=== PATIENT | female | born 1935 | race Caucasian/White ===

== ENCOUNTER 2023-05-14 16:38 | Inpatient (IN) ==
[2023-05-14] MEDS ORDERED: MORPHINE SULFATE INJ 4 MG ONE ×2 (17:15→19:57)
[2023-05-14] MEDS ORDERED: ZOFRAN INJ 4 MG VIAL ONE (17:15)
--- NOTE | 2023-05-14 17:21 | DR.EXTPAIN ---
HPI Time seen Time Seen by Provider: 05/14/23 17:20 PCP Primary Care Physician: Mauricio Complaint/Symptoms Chief Complaint:: Patient states that [facility] and [facility]. She states that she landed on her right shoulder and left knee. She states that her knee does not hurt, but her shoulder is very painful and she is unable to move it. COVID-19 Coronavirus risk:travel/contact w/high risk person: No Has patient experienced Coronavirus symptoms: No Nurses notes reviewed Nurses Notes Review: Yes Source History Provided: Patient Mode of arrival Mode of Arrival: Wheelchair Timing Onset of Chief Complaint: 05/14/23 PMH PMH Past Medical History: Yes Past Medical History: Diabetes, Dyslipidemia and Hypertension Past Medical History Comment: Breast cancer left side Past Surgical History: Yes Surgical History: Appendectomy, Hysterectomy, Mastectomy and Ortho Surgery Past Surgical History Comment: Neck Family History History of Family Medical Conditions: Yes Family Medical History: Diabetes Mellitus, AR and Hypertension Social History Does patient currently use any type of tobacco product: No Have you used tobacco products in the last 12 months: No Type of Tobacco Use: None Does any household member use tobacco: No Alcohol Use: None Do you use any recreational Drugs:: No Lives With: Family Lives Where: Home Travel Risk Coronavirus risk:travel/contact w/high risk person: No Has patient experienced Coronavirus symptoms: No Infectious screening In the last 2 months have you had wt loss of >10#?: NO Have you had fever, night sweats or hemotysis?: No Have you traveled outside the country in the last 6 months?: No Isolation: Standard PE Vital Signs Vitals: Vital Signs Temperature 98.4 F Pulse Rate 77 Pulse Rate 77 Pulse Rate 74 Pulse Rate 75 Pulse Rate 74 Pulse Rate 74 Pulse Rate 74 Pulse Rate 73 Pulse Rate 75 Pulse Rate 72 Pulse Rate 73 Pulse Rate 74 Pulse Rate 76 Pulse Rate 72 Pulse Rate 72 Pulse Rate 73 Pulse Rate 72 Pulse Rate 72 Pulse Rate 72 Pulse Rate 67 Pulse Rate 65 Pulse Rate 66 Pulse Rate 66 Pulse Rate 65 Pulse Rate 67 Pulse Rate 69 Pulse Rate 77 Pulse Rate 79 Pulse Rate 81 Pulse Rate 81 Pulse Rate 90 Respiratory Rate 20 Respiratory Rate 20 Respiratory Rate 18 Respiratory Rate 20 Respiratory Rate 20 Respiratory Rate 20 Respiratory Rate 18 Respiratory Rate 35 Respiratory Rate 22 Respiratory Rate 32 Respiratory Rate 20 Respiratory Rate 18 Blood Pressure 177/74 Blood Pressure 182/78 Blood Pressure 177/73 Blood Pressure 177/73 Blood Pressure 209/79 Blood Pressure 190/79 Blood Pressure 208/87 Blood Pressure 208/87 Blood Pressure 221/85 Blood Pressure 211/86 Blood Pressure 227/91 Blood Pressure 212/85 Blood Pressure 228/88 Blood Pressure 228/88 Blood Pressure 211/84 Blood Pressure 211/84 Blood Pressure 213/82 Blood Pressure 213/82 Blood Pressure 183/74 Blood Pressure 226/91 Blood Pressure 229/95 Blood Pressure 243/109 Blood Pressure 213/86 O2 Sat by Pulse Oximetry 94 O2 Sat by Pulse Oximetry 93 O2 Sat by Pulse Oximetry 95 O2 Sat by Pulse Oximetry 94 O2 Sat by Pulse Oximetry 95 O2 Sat by Pulse Oximetry 95 O2 Sat by Pulse Oximetry 94 O2 Sat by Pulse Oximetry 93 O2 Sat by Pulse Oximetry 94 O2 Sat by Pulse Oximetry 95 O2 Sat by Pulse Oximetry 95 O2 Sat by Pulse Oximetry 96 O2 Sat by Pulse Oximetry 95 O2 Sat by Pulse Oximetry 94 O2 Sat by Pulse Oximetry 96 O2 Sat by Pulse Oximetry 96 O2 Sat by Pulse Oximetry 96 O2 Sat by Pulse Oximetry 95 O2 Sat by Pulse Oximetry 95 O2 Sat by Pulse Oximetry 94 O2 Sat by Pulse Oximetry 93 O2 Sat by Pulse Oximetry 95 O2 Sat by Pulse Oximetry 93 O2 Sat by Pulse Oximetry 94 O2 Sat by Pulse Oximetry 94 O2 Sat by Pulse Oximetry 95 O2 Sat by Pulse Oximetry 96 O2 Sat by Pulse Oximetry 96 O2 Sat by Pulse Oximetry 96 [facility] Labs Reviewed 05/14/23 17:50 05/14/23 17:50 Laboratory: WBC 6.1 X10^3/uL (3.6-10.0) 05/14/23 17:50 RBC 3.87 X10^6/uL (3.5-5.4) 05/14/23 17:50 Hgb 11.4 g/dL (12.0-16.0) L 05/14/23 17:50 Hct 33.8 % (36.0-47.0) L 05/14/23 17:50 MCV 87.1 fL (80.0-100.0) 05/14/23 17:50 MCH 29.3 pg (27.0-34.0) 05/14/23 17:50 MCHC 33.6 g/dL (33.0-35.0) 05/14/23 17:50 RDW 14.5 % (11.6-16.5) 05/14/23 17:50 Plt Count 249 X10^3/uL (150.0-450.0) 05/14/23 17:50 MPV 7.9 fL (7.4-11.0) 05/14/23 17:50 Neut % (Auto) 45.0 % (42.0-75.0) 05/14/23 17:50 Lymph % (Auto) 37.8 % (21.0-51.0) 05/14/23 17:50 [facility] % (Auto) 13.1 % (0.0-13.0) H 05/14/23 17:50 Eos % (Auto) 1.9 % (0.9-2.9) 05/14/23 17:50 Baso % (Auto) 2.2 % (0.2-1.0) H 05/14/23 17:50 Neut # (Auto) 2.7 x10^3/uL (2.2-4.8) 05/14/23 17:50 Lymph # (Auto) 2.3 X10^3/uL (1.3-2.9) 05/14/23 17:50 [facility] # (Auto) 0.8 x10^3/uL (0.3-0.8) 05/14/23 17:50 Eos # (Auto) 0.1 x10^3/uL (0.0-0.2) 05/14/23 17:50 Baso # (Auto) 0.1 X10^3/uL (0.0-0.1) 05/14/23 17:50 Absolute Nucleated RBC 0.1 /100WBC 05/14/23 17:50 Sodium 138 mmol/L (136-145) 05/14/23 17:50 Corrected Sodium 139 mmol/L (136-145) 05/14/23 17:50 Potassium 4.2 mmol/L (3.5-5.1) 05/14/23 17:50 Chloride 104 mmol/L (98-107) 05/14/23 17:50 Carbon Dioxide 24.9 mmol/L (21-32) 05/14/23 17:50 BUN 27 mg/dL (7-18) H 05/14/23 17:50 Creatinine 1.58 mg/dL (0.55-1.02) H 05/14/23 17:50 Est GFR (MDRD) Af Amer 40 (>60) L 05/14/23 17:50 Est GFR (MDRD) Non-Af 33 (>60) L 05/14/23 17:50 Glucose 145 mg/dL (65-99) H 05/14/23 17:50 Calcium 8.9 mg/dL (8.5-10.1) 05/14/23 17:50 Corrected Calcium TNP 05/14/23 17:50 Total Bilirubin 0.30 mg/dL (0.2-1.0) 05/14/23 17:50 AST 21 Units/L (15-37) 05/14/23 17:50 ALT 21 Units/L (12-78) 05/14/23 17:50 Alkaline Phosphatase 79 Units/L (46-116) 05/14/23 17:50 Total Protein 7.0 g/dL (6.4-8.2) 05/14/23 17:50 Albumin 3.9 g/dL (3.4-5.0) 05/14/23 17:50 Globulin 3.1 g/dL (2.5-4.5) 05/14/23 17:50 Albumin/Globulin Ratio 1.3 Ratio (1.1-2.1) 05/14/23 17:50 Opioid Opioid Risk Tool Age (Cj box if 16-45): No History of Preadolescent Sexual Abuse: No Total: 0 Total Score Risk Category: Low Risk Copyright: Lopez MORALES predicting aberrant behaviors Discharge Plan Diagnosis Discharge Problem: Hypertension Qualifiers: Hypertension type: primary hypertension Qualified Code(s): I10 - Essential (primary) hypertension Closed right humeral fracture Qualifiers: Encounter type: initial encounter Humerus Location: proximal Fracture morphology: other fracture Fracture alignment: nondisplaced Qualified Code(s): S42.294A - Other nondisplaced fracture of upper end of right humerus, initial encounter for closed fracture Fall Qualifiers: Encounter type: initial encounter Qualified Code(s): W19.XXXA - Unspecified fall, initial encounter Discharge Plan Patient Disposition: ADMITTED INPATIENT Condition: Stable Orders to Discharge Patient Discharge Orders: Transfer (Routine); Ordered 05/14/23 Ordered By: JUAN ALBERTO PRINCE
[2023-05-14] MEDS: MORPHINE SULFATE INJ 4 MG IVP ONE ×2 (17:50→20:03)
[2023-05-14] MEDS: ZOFRAN INJ 4 MG VIAL IVP ONE (17:51)
[2023-05-14 18:02] LABS: BASOPHILS # (AUTO) 0.1 X10^3/uL (0.0-0.1); BASOPHILS % (AUTO) 2.2 % (0.2-1.0); EOSINOPHILS # (AUTO) 0.1 x10^3/uL (0.0-0.2); EOSINOPHILS % (AUTO) 1.9 % (0.9-2.9); HEMATOCRIT 33.8 % (36.0-47.0); HEMOGLOBIN 11.4 g/dL (12.0-16.0); LYMPHOCYTES # (AUTO) 2.3 X10^3/uL (1.3-2.9); LYMPHOCYTES % (AUTO) 37.8 % (21.0-51.0); MEAN CORPUSCULAR HEMOGLOBIN 29.3 pg (27.0-34.0); MEAN CORPUSCULAR HGB CONC 33.6 g/dL (33.0-35.0); MEAN CORPUSCULAR VOLUME 87.1 fL (80.0-100.0); MEAN PLATELET VOLUME 7.9 fL (7.4-11.0); MONOCYTES # (AUTO) 0.8 x10^3/uL (0.3-0.8); MONOCYTES % (AUTO) 13.1 % (0.0-13.0); NEUTROPHILS # (AUTO) 2.7 x10^3/uL (2.2-4.8); PLATELET COUNT 249 X10^3/uL (150.0-450.0); RED BLOOD COUNT 3.87 X10^6/uL (3.5-5.4); RED CELL DISTRIBUTION WIDTH 14.5 % (11.6-16.5); WHITE BLOOD COUNT 6.1 X10^3/uL (3.6-10.0)
--- NOTE | 2023-05-14 18:09 | RAD ---
EXAM:SHOULDER, RIGHTHISTORY:fall;COMPARISON:None. .br.br.br obtained.FINDINGS:There is comminuted spiral fracture of the right proximal humeral shaft which is angulated medially at the fracture site. No dislocation of the right humeral head is seen. There is also fracture through the mid body of the lateral aspect of the right scapula. The appearance of the clavicle and AC joint are unremarkable. The glenohumeral articulation is intact. In addition, the visualized portions of the chest appear unremarkable.Evidence for anterior cervical interbody fusion of 3 levels of the lower cervical spine is seen.IMPRESSION:Comminuted spiral fracture of the proximal right humeral shaft seen just beyond the proximal metaphysis with angulation medially at the fracture site.Fracture of the lateral aspect of the mid body of the scapula.THIS IS AN ELECTRONICALLY VERIFIED FINAL REPORT05/14/2023 6:06 PM - Electronically signed by Penelope Long MD
[2023-05-14 18:12] LABS: ALANINE AMINOTRANSFERASE 21 Units/L (12-78); ALBUMIN 3.9 g/dL (3.4-5.0); ALKALINE PHOSPHATASE 79 Units/L (46-116); ASPARTATE AMINO TRANSFERASE 21 Units/L (15-37); BLOOD UREA NITROGEN 27 mg/dL (7-18); CALCIUM 8.9 mg/dL (8.5-10.1); CARBON DIOXIDE 24.9 mmol/L (21-32); CHLORIDE 104 mmol/L (98-107); COR NA(FOR HYPERGLY) 139 mmol/L (136-145); CREATININE 1.58 mg/dL (0.55-1.02); GLUCOSE 145 mg/dL (65-99); POTASSIUM 4.2 mmol/L (3.5-5.1); SODIUM 138 mmol/L (136-145); eGFR NON BLACK RACES 33 (>60)
--- NOTE | 2023-05-14 18:33 | RAD ---
EXAM:KNEE COMPLETE, LEFTHISTORY:TRAUMA, PAIN;COMPARISON:None.TECHNIQUE:Frontal, lateral and oblique views of the left knee were obtained.FINDINGS:There are no acute fractures or dislocations. There are no lytic or blastic lesions identified. There are severe degenerative joint disease of the knee joint with loss of the medial compartment joint space and [id number] contact. Mild sclerosis of the intra-articular surface of the medial femoral condyle and medial tibial plateau is seen. Significant osteophytosis is noted of the medial femoral condyle, medial tibial plateau and lateral femoral condyle. Significant osteophyte formation of the patellofemoral joint is also seen as well as enthesopathy of the anterior superior patella. There is a small suprapatellar effusion. 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
--- NOTE | 2023-05-14 18:35 | RAD ---
EXAM:ELBOW, RIGHTHISTORY:fall;COMPARISON:None. .br.br.br obtainedFINDINGS:There are no acute fractures or dislocations identified. The radial head specifically appears intact. There are no lytic or blastic lesions identified. There are osteophytes arising from the proximal shaft of the ulna and distal metaphysis of the ventral humerus. Mild enthesopathy is also seen arising from the medial and lateral epicondyles there is no evidence for elevated fat pads to suggest joint hemarthrosis.IMPRESSION:No acute fractures or dislocations.Minimal degenerative changes as described.THIS IS AN ELECTRONICALLY VERIFIED FINAL REPORT05/14/2023 6:31 PM - Electronically signed by Penelope Long MD
[2023-05-14] MEDS ORDERED: CATAPRES TAB 0.2 MG ONE (20:40)
[2023-05-14] MEDS: CATAPRES TAB 0.2 MG PO ONE (20:41)
[2023-05-14 23:37] VITALS: BMI 29.5
[2023-05-15] MEDS: MORPHINE SULFATE INJ 4 MG IVP PRN (00:20)
[2023-05-15] MEDS: NovoLIN R (or HumuLIN R) SUBCUT PRN (05:35)
[2023-05-15 07:00] LABS: BASOPHILS % (AUTO) 0.6 % (0.2-1.0); EOSINOPHILS # (AUTO) 0.1 x10^3/uL (0.0-0.2); EOSINOPHILS % (AUTO) 0.6 % (0.9-2.9); HEMATOCRIT 28.4 % (36.0-47.0); HEMOGLOBIN 9.6 g/dL (12.0-16.0); LYMPHOCYTES # (AUTO) 1.1 X10^3/uL (1.3-2.9); LYMPHOCYTES % (AUTO) 13.1 % (21.0-51.0); MEAN CORPUSCULAR HEMOGLOBIN 29.5 pg (27.0-34.0); MEAN CORPUSCULAR HGB CONC 33.8 g/dL (33.0-35.0); MEAN CORPUSCULAR VOLUME 87.4 fL (80.0-100.0); MEAN PLATELET VOLUME 7.9 fL (7.4-11.0); MONOCYTES % (AUTO) 11.6 % (0.0-13.0); NEUTROPHILS # (AUTO) 6.5 x10^3/uL (2.2-4.8); NEUTROPHILS % (AUTO) 74.1 % (42.0-75.0); PLATELET COUNT 205 X10^3/uL (150.0-450.0); RED BLOOD COUNT 3.24 X10^6/uL (3.5-5.4); RED CELL DISTRIBUTION WIDTH 14.7 % (11.6-16.5); WHITE BLOOD COUNT 8.7 X10^3/uL (3.6-10.0)
[2023-05-15 07:25] LABS: ALBUMIN 3.2 g/dL (3.4-5.0); CALCIUM 8.2 mg/dL (8.5-10.1); CARBON DIOXIDE 24.7 mmol/L (21-32); COR CA(FOR HYPOALB) 8.8 mg/dL (8.5-10.1); CREATININE 1.65 mg/dL (0.55-1.02); POTASSIUM 4.6 mmol/L (3.5-5.1); TOTAL PROTEIN 6.2 g/dL (6.4-8.2)
[2023-05-15] MEDS ORDERED: GLUCOPHAGE ONE ×2 (08:12→20:06)
[2023-05-15] MEDS: APRESOLINE TAB 25 MG PO SCH (08:43)
[2023-05-15] MEDS: DIABETA PO SCH (08:43)
[2023-05-15] MEDS: ALDACTONE TAB 25 MG PO SCH (08:43)
[2023-05-15] MEDS: LYRICA CAP 75 mg PO SCH (08:44)
[2023-05-15] MEDS: GLUCOPHAGE PO SCH (08:44)
[2023-05-15] MEDS: MACROBID CAP 100 MG EXT REL PO SCH (08:44)
[2023-05-15] MEDS: PriLOSEC PO SCH (08:45)
[2023-05-15] MEDS: TRICOR TAB 145 MG PO SCH (08:45)
[2023-05-15] MEDS: TOPROL XL PO SCH (08:45)
[2023-05-15] MEDS: SINGULAIR TAB 10 MG PO SCH (08:45)
[2023-05-15] MEDS: LOVAZA PO SCH (08:46)
[2023-05-15] MEDS: PREDNISONE TAB 5 MG PO SCH (09:00)
[2023-05-15] MEDS ORDERED: FEMARA PO SCH (09:00)
[2023-05-15] MEDS: PATIENT'S HOME MEDICATION PO SCH (12:01)
[2023-05-15] MEDS: ZOFRAN INJ 4 MG VIAL IVP PRN (15:23)
[2023-05-15] MEDS: PERCOCET TAB 5/325 MG PO PRN (16:00)
--- NOTE | 2023-05-15 19:12 | DR.H&P ---
H&P - History & Physical for Day of: H&P Date: 05/14/23 - Chief Complaint Chief Complaint: RIGHT SHOULDER PAIN, LEFT KNEE PAIN, RECENT FALL - History of Present Illness History of Present Illness: IS A 87 YEAR OLD PATIENT OF DR.SINC CHAMPION. SHE PRESENTED TO THE ER WITH COMPLAINTS OF RIGHT SHOULDER AND LEFT KNEE PAIN FOLLOWING A FALL. PATIENT REPORTS THAT SHE WAS VISITING AT THE [employer] AND FELL. SHE LANDED ON THE RIGHT SHOULDER. SHE REPORTS THAT SHE IS UNABLE TO MOVE THE RIGHT SHOULDER. HER MEDICAL HX INCLUDES: DIABETES MELLITUS, DYSLIPIDEMIA, HTN, LEFT BREAST CANCER, APPENDECTOMY, HYSTERECTOMY, MASTECTOMY, AND NECK SURGERY. ON ARRIVAL, HER VITALS WERE: 98.4-90-18-96%-213/86. LABS WERE OBTAINED. WBC 6.1, RBC 3.87, HGB 11.4, HCT 33.8, PLT COUNT 249, SODIUM 138, POTASSIUM 4.2, CHLORIDE 104, BUN 27, CREATININE 1.58, GLUCOSE 145, CALCIUM 8.9, TOTAL BILI 0.30, AST 21, ALT 21, ALK PHOS 79, TOTAL PROTEIN 7.0, ALBUMIN 3.9. RIGHT ELBOW XRAY WAS OBTAINED AND REVEALED: There are no acute fractures or dislocations identified. The radial head specifically appears intact. There are no lytic or blastic lesions identified. There are osteophytes arising from the proximal shaft of the ulna and distal metaphysis of the ventral humerus. Mild enthesopathy is also seen arising from the medial and lateral epicondyles there is no evidence for elevated fat pads to suggest joint hemarthrosis. RIGHT SHOULDER XRAY WAS OBTAINED AND REVEALED: There is comminuted spiral fracture of the right proximal humeral shaft which is angulated medially at the fracture site. No dislocation of the right humeral head is seen. There is also fracture through the mid body of the lateral aspect of the right scapula. The appearance of the clavicle and AC joint are unremarkable. The glenohumeral articulation is intact. In addition, the visualized portions of the chest appear unremarkable. Evidence for anterior cervical interbody fusion of 3 levels of the lower cervical spine is seen. LEFT KNEE XRAY WAS OBTAINED AND REVEALED: No evidence for acute fractures or Dislocations. Severe degenerative joint disease of the knee joint. IN THE ER, SHE WAS GIVEN MORPHINE SULFATE 4MG IV X 2, ZOFRAN 4MG IV X 1, CATAPRES 0.2MG PO X 1. SHE WAS ADMITTED TO THE HOSPITAL OBSERVATION STATUS FOR TREATMENT OF INTRACTABLE PAIN DUE TO RIGHT HUMERAL FX, RIGHT SCAPULA FX, RECENT FALL, HTN. SHE WAS STARTED ON OTBS ACHS, HUMULIN R SLIDING SCALE, MORPHINE SULFATE 4MG IV Q4H PRN, PERCOCET 5/325MG Q6H PRN. WE WILL RESUME HER HOME MEDICATIONS OF VITAMIN B12, COLACE, VITAMIN D, TRICOR, GLYBURIDE, HYDRALAZINE, GLUCOPHAGE, TOPROL XL, SINGULAIR, MACROBID, LOVAZA, PRILOSEC, PREDNISONE, LYRICA, CRESTOR, ALDACTONE. WE WILL CONSULT LILO VINCENT. OTHERWISE, WE WILL FOLLOW-UP WITH AM LABS AND CONTINUE TO MONITOR. TIME SPENT ON CLINICAL ASSESSMENT, REVIEWING LABS AND IMAGING, DECISION MAKING, AND DOCUMENTATION GREATER THAN 75 MINUTES. - Past Medical History Past Medical History: Hypertension, Dyslipidemia, Diabetes - Past Surgical History Surgical History: Appendectomy, Hysterectomy, Mastectomy, Ortho Surgery - Family History Family Medical History: Diabetes Mellitus, Cancer, Hypertension - Social History Does patient currently use any type of tobacco product: No Have you used tobacco products in the last 12 months: No Type of Tobacco Use: None Does any household member use tobacco: No Alcohol Use: None Drug Use: None - Review of Systems Constitutional: Weakness Eyes: No Symptoms Reported ENT: No Symptoms Reported Respiratory: No Symptoms Reported Cardiovascular: No Symptoms Reported Gastrointestinal: No Symptoms Reported Genitourinary: No Symptoms Reported Musculoskeletal: Shoulder Pain (RIGHT ), Other (LEFT KNEE) Skin: No Symptoms Reported Neurological: Weakness - Physical Exam Vital Signs: Vital Signs Temperature 99.8 F Temperature 98.0 F Pulse Rate [Left Radial] 66 Pulse Rate [Left Radial] 66 Respiratory Rate 18 Respiratory Rate 18 Respiratory Rate 20 Respiratory Rate 20 Respiratory Rate 20 Respiratory Rate 20 Respiratory Rate 20 Respiratory Rate 18 Blood Pressure [Right Calf] 185/75 Blood Pressure [Right Calf] 157/65 O2 Sat by Pulse Oximetry 92 O2 Sat by Pulse Oximetry 93 Oriented: Normal Eyes: Normal Ear: Normal Nose: Normal Throat: Normal Respiratory: Clear Throughout Cardiovascular: Normal : Normal Auscultation: Bowel Sounds: Normal Palpation: Normal Tenderness: Normal Skin: Normal Musculoskeletal: Shoulder (RIGHT ), Knee (LEFT ) Psychiatric: Normal Mood Description: Calm Affect: Normal Speech Pattern: Clear - Assessment/Plan (1) Closed right humeral fracture Qualifiers: Encounter type: initial encounter Humerus Location: proximal Fracture morphology: other fracture Fracture alignment: nondisplaced Qualified Code(s): S42.294A - Other nondisplaced fracture of upper end of right humerus, initial encounter for closed fracture Status: Acute Plan: ORTHO CONSULT, SHOULDER SLING, OTBS ACHS, HUMULIN R SLIDING SCALE, MORPHINE SULFATE 4MG IV Q4H PRN, PERCOCET 5/325MG Q6H PRN. WE WILL RESUME HER HOME MEDICATIONS OF VITAMIN B12, COLACE, VITAMIN D, TRICOR, GLYBURIDE, HY DRALAZINE, GLUCOPHAGE, TOPROL XL, SINGULAIR, MACROBID, LOVAZA, PRILOSEC, PREDNISONE, LYRICA, CRESTOR, ALDACTONE (2) Right scapula fracture Qualifiers: Encounter type: initial encounter Scapula location: unspecified part of scapula Fracture type: closed Qualified Code(s): S42.101A - Fracture of unspecified part of scapula, right shoulder, initial encounter for closed fracture Status: Acute (3) Fall Qualifiers: Encounter type: initial encounter Qualified Code(s): W19.XXXA - Unspecified fall, initial encounter Status: Acute (4) Left knee pain Qualifiers: Chronicity: acute Qualified Code(s): M25.562 - Pain in left knee Status: Acute (5) Diabetes mellitus Qualifiers: Diabetes mellitus type: type 2 Diabetes mellitus ferry terminal supervisor insulin use: with ferry terminal supervisor use Diabetes mellitus complication status: with hyperglycemia Qualified Code(s): E11.65 - Type 2 diabetes mellitus with hyperglycemia; Z79.4 - ferry terminal supervisor (current) use of insulin Status: Chronic (6) GERD (gastroesophageal reflux disease) Qualifiers: Esophagitis presence: esophagitis presence not specified Qualified Code(s): K21.9 - Gastro-esophageal reflux disease without esophagitis Status: Chronic (7) Hyperlipidemia Qualifiers: Hyperlipidemia type: mixed hyperlipidemia Qualified Code(s): E78.2 - Mixed hyperlipidemia Status: Chronic (8) Hypertension Qualifiers: Hypertension type: primary hypertension Qualified Code(s): I10 - Essential (primary) hypertension Status: Chronic - Allergies Allergies/Adverse Reactions: Allergies Allergy/AdvReac Type Severity Reaction Status Date / Time No Known Allergies Allergy Verified 05/14/23 17:14 - Medications Home Medications: Home Medications Medication Instructions Recorded Confirmed cyanocobalamin (vitamin B-12) 1,000 mcg IM Q2W 05/14/23 05/14/23 1,000 mcg/mL injection solution ergocalciferol (vitamin D2) 1,250 1,250 mcg PO QWEEK 05/14/23 05/14/23 mcg (50,000 unit) capsule (Vitamin D2) fenofibrate nanocrystallized 145 145 mg PO QDAY 05/14/23 05/14/23 mg tablet glyburide 5 mg tablet 5 mg PO BID 05/14/23 05/14/23 hydralazine 25 mg tablet 25 mg PO BID 05/14/23 05/14/23 letrozole 2.5 mg tablet 2.5 mg PO QDAY 05/14/23 05/14/23 metformin 500 mg tablet 500 mg PO BID 05/14/23 05/14/23 metoprolol succinate 50 mg 50 mg PO QDAY 05/14/23 05/14/23 tablet,extended release 24 hr montelukast 10 mg tablet 10 mg PO QDAY 05/14/23 05/14/23 nitrofurantoin 100 mg PO DAILY 05/14/23 05/14/23 monohydrate/macrocrystals 100 mg capsule omega 2-kkj-rga-fish oil 1,200 mg 1 cap PO BID 05/14/23 05/14/23 (144 mg-216 mg) capsule (Fish Oil) omeprazole 20 mg capsule,delayed 20 mg PO QDAY 05/14/23 05/14/23 release prednisone 1 mg tablet 3 mg PO Q OTHER DAY 05/14/23 05/14/23 pregabalin 75 mg capsule 75 mg PO BID 05/14/23 05/14/23 rosuvastatin 20 mg tablet 20 mg PO QPM 05/14/23 05/14/23 spironolactone 50 mg tablet 50 mg PO BID 05/14/23 05/14/23
[2023-05-15] MEDS: PHENERGAN INJ 25 MG IM PRN (19:37)
[2023-05-15] MEDS ORDERED: SNACK - Diabetic Appropriate PO SCH (20:00)
[2023-05-15] MEDS: CRESTOR TAB 10 MG PO SCH (21:13)
[2023-05-15] MEDS: COLACE CAP 100 MG PO SCH (21:14)
[2023-05-15] MEDS: MILK OF MAGNESIA PO SCH (21:22)
[2023-05-15] MEDS: SNACK - Diabetic Appropriate PO SCH (21:22)
[2023-05-15] MEDS: NS 1,000 ML IV 1,000 ML IV SCH (21:53)
[2023-05-16 07:19] LABS: BASOPHILS # (AUTO) 0.1 X10^3/uL (0.0-0.1); BASOPHILS % (AUTO) 0.7 % (0.2-1.0); EOSINOPHILS # (AUTO) 0.2 x10^3/uL (0.0-0.2); HEMATOCRIT 27.1 % (36.0-47.0); HEMOGLOBIN 9.2 g/dL (12.0-16.0); LYMPHOCYTES % (AUTO) 23.5 % (21.0-51.0); MEAN CORPUSCULAR HEMOGLOBIN 29.9 pg (27.0-34.0); MEAN CORPUSCULAR HGB CONC 34.1 g/dL (33.0-35.0); MEAN CORPUSCULAR VOLUME 87.8 fL (80.0-100.0); MEAN PLATELET VOLUME 7.6 fL (7.4-11.0); MONOCYTES # (AUTO) 1.3 x10^3/uL (0.3-0.8); MONOCYTES % (AUTO) 15.3 % (0.0-13.0); NEUTROPHILS # (AUTO) 4.9 x10^3/uL (2.2-4.8); NEUTROPHILS % (AUTO) 58.5 % (42.0-75.0); PLATELET COUNT 179 X10^3/uL (150.0-450.0); RED BLOOD COUNT 3.08 X10^6/uL (3.5-5.4); RED CELL DISTRIBUTION WIDTH 14.8 % (11.6-16.5); WHITE BLOOD COUNT 8.4 X10^3/uL (3.6-10.0)
[2023-05-16 07:28] LABS: CALCIUM 8.2 mg/dL (8.5-10.1); CARBON DIOXIDE 23.2 mmol/L (21-32); CREATININE 1.64 mg/dL (0.55-1.02); POTASSIUM 4.2 mmol/L (3.5-5.1); TOTAL PROTEIN 6.1 g/dL (6.4-8.2)
[2023-05-16] MEDS ORDERED: GLUCOPHAGE ONE ×2 (08:30→20:48)
[2023-05-16] MEDS ORDERED: MILK OF MAGNESIA PO PRN (09:39)
[2023-05-16] MEDS: MILK OF MAGNESIA PO SCH (10:20)
--- NOTE | 2023-05-16 11:41 | CT ---
EXAM:CT ABDOMEN WITHOUT CONTRASTHISTORY:PT STATES SHE IS HAVING LEFT UPPER QUAD PAIN; ABD PAINCOMPARISON:None.TECHNIQUE:Axial CT images were obtained through the abdomen without contrast. Coronal reformatted images were included.All CT scans at this facility use dose modulation, iterative reconstruction, and/or weight based dosing when appropriate to reduce radiation dose to as low as reasonably achievable.FINDINGS:Please note that without the use of intravenous contrast, evaluation of organ parenchyma is limited.LOWER THORAX: Mild hypoventilatory changes of the lung basesLIVER: NormalGALLBLADDER: Mild gallbladder distentionSPLEEN: NormalPANCREAS: NormalKIDNEYS: Scattered renal cysts are suspected.ADRENAL GLANDS: NormalGI TRACT: Normal course and caliberLYMPH NODES: No enlarged nodesVESSELS: Diffuse athero sclerotic diseasePERITONEUM / RETROPERITONEUM: No free gasBONES: NormalIMPRESSION:Mild gallbladder distention. No inflammatory changes in the abdomen at this time. No findings left upper quadrant to correlate with the patient's history of left upper quadrant abdominal pain.Bibasilar lung atelectasis noted.THIS IS AN ELECTRONICALLY VERIFIED FINAL REPORT05/16/2023 11:38 AM - Electronically signed by John Null MD
[2023-05-16] MEDS: FEMARA PO SCH (15:42)
[2023-05-16 18:56] VITALS: RESP 20
--- NOTE | 2023-05-16 19:14 | DR.CONSULT ---
CONSULT Consultation for Day of: Date: 05/16/23 Chief Complaint Chief Complaint: Right arm/shoulder pain Allergies Allergies Allergy/AdvReac Type Severity Reaction Status Date / Time No Known Allergies Allergy Verified 05/14/23 17:14 History of Present Illness History of Present Illness: Katerina is an 87 y/o F at [facility] with the chief complaint of Right arm/shoulder pain. She was visiting at a [facility] yesterday when she fell and landed onto her Right side. She denies pain in the RUE prior to this fall. She was transported to [facility] ER where xrays demonstrated a humerus fracture. She was placed into observation to the hospital and admitted to pain control. Orthopedics was consulted for further recommendations. She currently reports pain is tolerable in a splint. She denies radiating pain or paresthesias. She denies head injury. Has a history of Right shoulder surgery many years ago, possibly for rotator cuff repair. Past Medical History Past Medical History: Diabetes, Dyslipidemia and Hypertension Past Surgical History Surgical History: Appendectomy, Hysterectomy, Mastectomy and Ortho Surgery (Right open shoulder surgery, ACDF) Family History Family Medical History: Diabetes Mellitus, Cancer and Hypertension Social History Does patient currently use any type of tobacco product: No Have you used tobacco products in the last 12 months: No Type of Tobacco Use: None Does any household member use tobacco: No Alcohol Use: None Drug Use: None Medications Home Medications: No Known Allergies Allergy (Verified 05/14/23 17:14) CONTINUE taking the following medications cyanocobalamin (vitamin B-12) 1,000 mcg/mL injection solution 1,000 mcg IM Q2W 05/14/23 [History] ergocalciferol (vitamin D2) 1,250 mcg (50,000 unit) capsule (Vitamin D2) 1,250 mcg PO QWEEK 05/14/23 [History] fenofibrate nanocrystallized 145 mg tablet 145 mg PO QDAY 05/14/23 [History] glyburide 5 mg tablet 5 mg PO BID 05/14/23 [History] hydralazine 25 mg tablet 25 mg PO BID 05/14/23 [History] letrozole 2.5 mg tablet 2.5 mg PO QDAY 05/14/23 [History] metformin 500 mg tablet 500 mg PO BID 05/14/23 [History] metoprolol succinate 50 mg tablet,extended release 24 hr 50 mg PO QDAY 05/14/23 [History] montelukast 10 mg tablet 10 mg PO QDAY 05/14/23 [History] nitrofurantoin monohydrate/macrocrystals 100 mg capsule 100 mg PO DAILY 05/14/23 [History] omega 4-izp-iiq-fish oil 1,200 mg (144 mg-216 mg) capsule (Fish Oil) 1 cap PO BID 05/14/23 [History] omeprazole 20 mg capsule,delayed release 20 mg PO QDAY 05/14/23 [History] prednisone 1 mg tablet 3 mg PO Q OTHER DAY 05/14/23 [History] pregabalin 75 mg capsule 75 mg PO BID 05/14/23 [History] rosuvastatin 20 mg tablet 20 mg PO QPM 05/14/23 [History] spironolactone 50 mg tablet 50 mg PO BID 05/14/23 [History] Review of Systems Constitutional: No Symptoms Reported Respiratory: No Symptoms Reported Cardiovascular: No Symptoms Reported Gastrointestinal: No Symptoms Reported Musculoskeletal: Arm Pain (RUE) Skin: Bruising (RUE) Neurological: No Symptoms Reported Physical Exam Vital Signs: Vital Signs Temperature 98.7 F Temperature 97.8 F Pulse Rate [Left Radial] 74 Pulse Rate [Left Radial] 70 Respiratory Rate 20 Respiratory Rate 18 Respiratory Rate 20 Respiratory Rate 20 Blood Pressure [Right Calf] 134/59 Blood Pressure [Right Calf] 172/72 O2 Sat by Pulse Oximetry 92 O2 Sat by Pulse Oximetry 92 Oriented: Normal Musculoskeletal: Shoulder (Right arm - extensive ecchymosis down the arm. Motor intact to IO/FPL/EPL/FDS. SILT in R/U/M dermatomes. Sensation intact in axillary nerve dermatome. Radial pulse 2+ with brisk capillary refill. Compartments are soft and compressible. Arm is in a sling.) Plan (1) Closed right humeral fracture: Status: Acute Qualifiers: Encounter type: initial encounter Fracture alignment: nondisplaced Fracture morphology: other fracture Humerus Location: proximal Qualified Code(s): S42.294A - Other nondisplaced fracture of upper end of right humerus, initial encounter for closed fracture Narrative Support Text: I reviewed her xrays which demonstrate a severely comminuted and angulated proximal humerus fracture that extends down into the shaft. She is currently comfortable in a sling. I brought a todd brace to fit to her arm but due to the discomfort associated with placing the splint in this setting, will hold off on this for now. She will be made NWB to the RUE. We discussed both conservative treatment options in regards to sling use and todd brace wear along with operative treatment options. The family does not want to pursue operative treatment options as this time. We discussed judicious use of ice and monitoring of the hematoma. I want her to follow up with me in one-two weeks in clinic for xrays for an alignment check. No surgical indications at this time. She can be discharged home from an Orthopedic standpoint. (2) Right scapula fracture: Status: Acute Qualifiers: Encounter type: initial encounter Fracture type: closed Scapula location: unspecified part of scapula Qualified Code(s): S42.101A - Fracture of unspecified part of scapula, right shoulder, initial encounter for closed fracture Narrative Support Text: Will also treated this non-operatively. She will be NWB in a sling for comfort. (3) Fall: Status: Acute Qualifiers: Encounter type: initial encounter Qualified Code(s): W19.XXXA - Unspecified fall, initial encounter (4) Left knee pain: Status: Acute Qualifiers: Chronicity: acute Qualified Code(s): M25.562 - Pain in left knee (5) Diabetes mellitus: Status: Chronic Qualifiers: Diabetes mellitus complication status: with hyperglycemia Diabetes mellitus emt intermediate insulin use: with emt intermediate use Diabetes mellitus type: type 2 Qualified Code(s): E11.65 - Type 2 diabetes mellitus with hyperglycemia; Z79.4 - detention (current) use of insulin (6) GERD (gastroesophageal reflux disease): Status: Chronic Qualifiers: Esophagitis presence: esophagitis presence not specified Qualified Code(s): K21.9 - Gastro-esophageal reflux disease without esophagitis (7) Hyperlipidemia: Status: Chronic Qualifiers: Hyperlipidemia type: mixed hyperlipidemia Qualified Code(s): E78.2 - Mixed hyperlipidemia (8) Hypertension: Status: Chronic Qualifiers: Hypertension type: primary hypertension Qualified Code(s): I10 - Essential (primary) hypertension
[2023-05-17 07:24] LABS: BASOPHILS # (AUTO) 0.1 X10^3/uL (0.0-0.1); BASOPHILS % (AUTO) 0.6 % (0.2-1.0); EOSINOPHILS # (AUTO) 0.2 x10^3/uL (0.0-0.2); EOSINOPHILS % (AUTO) 1.8 % (0.9-2.9); HEMATOCRIT 26.5 % (36.0-47.0); HEMOGLOBIN 8.9 g/dL (12.0-16.0); LYMPHOCYTES # (AUTO) 1.6 X10^3/uL (1.3-2.9); LYMPHOCYTES % (AUTO) 17.6 % (21.0-51.0); MEAN CORPUSCULAR HEMOGLOBIN 29.6 pg (27.0-34.0); MEAN CORPUSCULAR HGB CONC 33.6 g/dL (33.0-35.0); MEAN CORPUSCULAR VOLUME 88.2 fL (80.0-100.0); MONOCYTES # (AUTO) 1.4 x10^3/uL (0.3-0.8); MONOCYTES % (AUTO) 15.3 % (0.0-13.0); NEUTROPHILS # (AUTO) 5.8 x10^3/uL (2.2-4.8); NEUTROPHILS % (AUTO) 64.7 % (42.0-75.0); PLATELET COUNT 164 X10^3/uL (150.0-450.0); RED CELL DISTRIBUTION WIDTH 14.5 % (11.6-16.5)
[2023-05-17 07:47] LABS: ALBUMIN 2.8 g/dL (3.4-5.0); CALCIUM 8.1 mg/dL (8.5-10.1); CARBON DIOXIDE 25.5 mmol/L (21-32); COR CA(FOR HYPOALB) 9.1 mg/dL (8.5-10.1); CREATININE 1.51 mg/dL (0.55-1.02); POTASSIUM 4.3 mmol/L (3.5-5.1); TOTAL PROTEIN 6.2 g/dL (6.4-8.2)
[2023-05-17] MEDS ORDERED: GLUCOPHAGE ONE (08:03)
[2023-05-17 08:17] VITALS: BP 194/79; PULSE 76; TEMP 97.6; O2SAT 91
[2023-05-17] MEDS ORDERED: VITAMIN D (1.25MG) PO SCH (09:00)
[2023-05-17] MEDS: ALDACTONE TAB 25 MG PO SCH (09:12)
[2023-05-17] MEDS: TRICOR TAB 48 MG PO SCH (09:42)
[2023-05-17] MEDS: FLEXERIL TAB 10 MG PO ONE (10:00)
--- NOTE | 2023-05-18 13:15 | PCM.DCPLAN ---
DISCHARGE SUMMARY Admission Date Date of Admission: 05/14/23 Discharge Date Discharge Date: 05/17/23 Admission Diagnoses (1) Closed right humeral fracture: Status: Acute (2) Right scapula fracture: Status: Acute (3) Fall: Status: Acute (4) Left knee pain: Status: Acute (5) Diabetes mellitus: Status: Chronic (6) GERD (gastroesophageal reflux disease): Status: Chronic (7) Hyperlipidemia: Status: Chronic (8) Hypertension: Status: Chronic Discharge Diagnoses Discharge Diagnosis: Same as admission Discharge Medications Discharge Medications: Home Medication List cyanocobalamin (vitamin B-12) 1,000 mcg/mL injection solution 1,000 mcg IM Q2W 05/14/23 [History] ergocalciferol (vitamin D2) 1,250 mcg (50,000 unit) capsule (Vitamin D2) 1,250 mcg PO QWEEK 05/14/23 [History] fenofibrate nanocrystallized 145 mg tablet 145 mg PO QDAY 05/14/23 [History] glyburide 5 mg tablet 5 mg PO BID 05/14/23 [History] hydralazine 25 mg tablet 25 mg PO BID 05/14/23 [History] letrozole 2.5 mg tablet 2.5 mg PO QDAY 05/14/23 [History] metformin 500 mg tablet 500 mg PO BID 05/14/23 [History] metoprolol succinate 50 mg tablet,extended release 24 hr 50 mg PO QDAY 05/14/23 [History] montelukast 10 mg tablet 10 mg PO QDAY 05/14/23 [History] nitrofurantoin monohydrate/macrocrystals 100 mg capsule 100 mg PO DAILY 05/14/23 [History] omega 3-bge-ukg-fish oil 1,200 mg (144 mg-216 mg) capsule (Fish Oil) 1 cap PO BID 05/14/23 [History] omeprazole 20 mg capsule,delayed release 20 mg PO QDAY 05/14/23 [History] prednisone 1 mg tablet 3 mg PO Q OTHER DAY 05/14/23 [History] pregabalin 75 mg capsule 75 mg PO BID 05/14/23 [History] rosuvastatin 20 mg tablet 20 mg PO QPM 05/14/23 [History] spironolactone 50 mg tablet 50 mg PO BID 05/14/23 [History] cyclobenzaprine 10 mg tablet 10 mg PO Q8H #30 tabs 05/17/23 [Rx] Prescriptions: cyclobenzaprine [facility] Course Latest Lab Results: Laboratory Last Values WBC 9.0 X10^3/uL (3.6-10.0) 05/17/23 07:06 RBC 3.00 X10^6/uL (3.5-5.4) L 05/17/23 07:06 Hgb 8.9 g/dL (12.0-16.0) L 05/17/23 07:06 Hct 26.5 % (36.0-47.0) L 05/17/23 07:06 MCV 88.2 fL (80.0-100.0) 05/17/23 07:06 MCH 29.6 pg (27.0-34.0) 05/17/23 07:06 MCHC 33.6 g/dL (33.0-35.0) 05/17/23 07:06 RDW 14.5 % (11.6-16.5) 05/17/23 07:06 Plt Count 164 X10^3/uL (150.0-450.0) 05/17/23 07:06 MPV 8.0 fL (7.4-11.0) 05/17/23 07:06 Neut % (Auto) 64.7 % (42.0-75.0) 05/17/23 07:06 Lymph % (Auto) 17.6 % (21.0-51.0) L 05/17/23 07:06 [place] % (Auto) 15.3 % (0.0-13.0) H 05/17/23 07:06 Eos % (Auto) 1.8 % (0.9-2.9) 05/17/23 07:06 Baso % (Auto) 0.6 % (0.2-1.0) 05/17/23 07:06 Neut # (Auto) 5.8 x10^3/uL (2.2-4.8) H 05/17/23 07:06 Lymph # (Auto) 1.6 X10^3/uL (1.3-2.9) 05/17/23 07:06 [place] # (Auto) 1.4 x10^3/uL (0.3-0.8) H 05/17/23 07:06 Eos # (Auto) 0.2 x10^3/uL (0.0-0.2) 05/17/23 07:06 Baso # (Auto) 0.1 X10^3/uL (0.0-0.1) 05/17/23 07:06 Absolute Nucleated RBC 0.1 /100WBC 05/17/23 07:06 Sodium 138 mmol/L (136-145) 05/17/23 07:06 Corrected Sodium 139 mmol/L (136-145) 05/17/23 07:06 Potassium 4.3 mmol/L (3.5-5.1) 05/17/23 07:06 Chloride 103 mmol/L (98-107) 05/17/23 07:06 Carbon Dioxide 25.5 mmol/L (21-32) 05/17/23 07:06 BUN 30 mg/dL (7-18) H 05/17/23 07:06 Creatinine 1.51 mg/dL (0.55-1.02) H 05/17/23 07:06 Est GFR (MDRD) Af Amer 42 (>60) L 05/17/23 07:06 Est GFR (MDRD) Non-Af 35 (>60) L 05/17/23 07:06 Glucose 140 mg/dL (65-99) H 05/17/23 07:06 POC Glucose (mg/dL) 147 mg/dL (65-99) H 05/17/23 05:27 Calcium 8.1 mg/dL (8.5-10.1) L 05/17/23 07:06 Corrected Calcium 9.1 mg/dL (8.5-10.1) 05/17/23 07:06 Total Bilirubin 0.40 mg/dL (0.2-1.0) 05/17/23 07:06 AST 17 Units/L (15-37) 05/17/23 07:06 ALT 17 Units/L (12-78) 05/17/23 07:06 Alkaline Phosphatase 50 Units/L (46-116) 05/17/23 07:06 Total Protein 6.2 g/dL (6.4-8.2) L 05/17/23 07:06 Albumin 2.8 g/dL (3.4-5.0) L 05/17/23 07:06 Globulin 3.4 g/dL (2.5-4.5) 05/17/23 07:06 Albumin/Globulin Ratio 0.8 Ratio (1.1-2.1) L 05/17/23 07:06 Hospital Course: The patient is a 87 year old patient of our private practice, who was an ER admission over the weekend after suffering a traumatic fall that resulted in a right humerus fracture and right scapula fracture. She stated that she was visiting at the custodial and fell, landing on right shoulder. She presented with complaints of right shoulder pain and left knee pain. Left knee xray revealed no fractures, but did show severe degenerative joint disease. Xrays of right shoulder showed comminuted spiral fracture of the right proximal humeral shaft which is angulated medially at the fracture site and fracture through the midbody of the lateral aspect of the right scapula. She has a past medical history of diabetes mellitus, dyslipidemia, htn, left breast cancer, appendectomy, hysterectomy, mastectomy, and cervical spine surgery. Prior to fall, the patient had been recently treated for UTI on outpatient basis with macrobid. Upon admission, she had not completed abx therapy, so we continued. We obtained a urine culture on her and it showed no growth. She had complained of some left upper quadrant abdominal pain post fall and CT of abdomen and pelvis was obtained yesterday morning after insurance approval. It showed "mild gallbladder distention. No inflammatory changes in the abdomen at this time. No findings left upper quadrant to correlate with the patient's history of left upper quadrant abdominal pain. Bibasilar lung atelectasis noted." Patient states abdominal pain has resolved and denies nausea. Her white blood count is 9.0, hemoglobin 8.9, BUN 30/Creatinine 1.51 this morning. She has been consulted by Dr. Doss and he recommended an upper extremity sling. She has been on opioid pain medication and has tolerated well with effective control. She will need to continue pain control upon discharge. We discussed the need for home health and physical therapy services. Also discussed the need for orthopedic follow up. She requested to follow up with Dr. Patel, whom she has saw in the past. She has an appointment on 05/18/23 at 1:15PM. She will also need to follow up with us in our private practice for a hospital discharge follow up. She is scheduled for 05/23/23 at 2:15PM. Please see discharge plan for list of discharge medications and modifications that we made, electronic medical record for diagnostic tests and labs. The patient was instructed to return to the ER if condition changed or worsened unexpectedly.
[2023-05-24] MEDS ORDERED: VITAMIN B-12 INJ IM ONE (09:00)
== END 2023-05-17 11:23 | disposition home health service (06) | DRG 563 ==
LOC: MED/SURG 16:38 → ER 16:38 → MED/SURG 22:40
PROVIDERS: ADMIT Internal Medicine; ATTEND Internal Medicine

== ENCOUNTER 2024-07-19 11:08 | Observation (INO) ==
--- NOTE | 2024-07-19 12:45 | EKG ---
Test Reason : chest pain Blood Pressure : */* mmHG Vent. Rate : 69 BPM Atrial Rate : 69 BPM P-R Int : 188 ms QRS Dur : 100 ms QT Int : 400 ms P-R-T Axes : 89 16 43 degrees QTc Int : 428 ms Normal sinus rhythm prominent voltage Nonspecific ST abnormality No previous ECGs available Confirmed by López Huerta MD ([id number]) on 07/19/2024 5:45:29 PM Referred By: Confirmed By: López Huerta MD
[2024-07-19 13:21] LABS: BASOPHILS % (AUTO) 0.2 % (0.2-1.0); EOSINOPHILS # (AUTO) 0.1 x10^3/uL (0.0-0.2); EOSINOPHILS % (AUTO) 1.2 % (0.9-2.9); HEMOGLOBIN 10.9 g/dL (12.0-16.0); LYMPHOCYTES # (AUTO) 1.6 X10^3/uL (1.3-2.9); LYMPHOCYTES % (AUTO) 24.8 % (21.0-51.0); MEAN CORPUSCULAR HEMOGLOBIN 30.6 pg (27.0-34.0); MEAN CORPUSCULAR HGB CONC 34.1 g/dL (33.0-35.0); MEAN CORPUSCULAR VOLUME 89.6 fL (80.0-100.0); MEAN PLATELET VOLUME 8.4 fL (7.4-11.0); MONOCYTES # (AUTO) 0.9 x10^3/uL (0.3-0.8); MONOCYTES % (AUTO) 13.4 % (0.0-13.0); NEUTROPHILS # (AUTO) 3.9 x10^3/uL (2.2-4.8); NEUTROPHILS % (AUTO) 60.4 % (42.0-75.0); PLATELET COUNT 233 X10^3/uL (150.0-450.0); RED BLOOD COUNT 3.57 X10^6/uL (3.5-5.4); RED CELL DISTRIBUTION WIDTH 13.2 % (11.6-16.5); WHITE BLOOD COUNT 6.5 X10^3/uL (3.6-10.0)
[2024-07-19 13:45] LABS: ALANINE AMINOTRANSFERASE 25 Units/L (12-78); ALBUMIN 3.6 g/dL (3.4-5.0); ALKALINE PHOSPHATASE 47 Units/L (46-116); ASPARTATE AMINO TRANSFERASE 28 Units/L (15-37); BLOOD UREA NITROGEN 31 mg/dL (7-18); CARBON DIOXIDE 21.5 mmol/L (21-32); CHLORIDE 104 mmol/L (98-107); CREATININE 1.71 mg/dL (0.55-1.02); FREE T4 (FREE THYROXINE) 1.16 ng/dL (0.76-1.46); GLUCOSE 100 mg/dL (65-99); MAGNESIUM 1.8 mg/dL (2.0-2.9); POTASSIUM 4.1 mmol/L (3.5-5.1); SODIUM 141 mmol/L (136-145); TOTAL PROTEIN 6.7 g/dL (6.4-8.2); TSH (3RD GENERATION) 2.978 uIU/mL (0.358-3.74); eGFR NON BLACK RACES 30 (>60)
[2024-07-19 13:46] VITALS: BMI 27.9
[2024-07-19 14:56] LABS: BILIRUBIN,URINE NEGATIVE (NEGATIVE); BLOOD/HEMOGLOBIN,URINE 1+ (NEGATIVE); GLUCOSE, URINE NEGATIVE (NEGATIVE); KETONES,URINE NEGATIVE (NEGATIVE); LEUKOCYTE ESTERASE ,URINE 2+ (NEGATIVE); NITRITES,URINE NEGATIVE (NEGATIVE); PH,URINE 6.5 (5.0 - 8.0); PROTEIN,URINE 1+ (NEGATIVE); UROBILINOGEN,URINE NORMAL (NORMAL)
[2024-07-19 15:13] LABS: APPEARANCE,URINE CLEAR (CLEAR); BACTERIA,URINE TRACE /HPF (NEGATIVE); COLOR,URINE PALE YELLOW (YELLOW); RBC,URINE 0-2 /HPF (0-3); SQUAMOUS EPITHELIAL CELL,UR NEGATIVE /HPF (NEGATIVE)
[2024-07-19] MEDS: TYLENOL 500 MG TAB EXTRA STRENGTH PO PRN (15:27)
[2024-07-19] MEDS ORDERED: NORCO 5/325 MG TAB PO PRN (16:21)
[2024-07-19] MEDS: ALPRAZOLAM ODT PO ONE (16:36)
[2024-07-19] MEDS: NORVASC TAB 5 MG PO ONE (16:36)
[2024-07-19] MEDS ORDERED: NovoLIN R (or HumuLIN R) SUBCUT PRN (16:55)
--- NOTE | 2024-07-19 17:39 | CT ---
EXAM: BRAIN W/O CON HISTORY: headache; COMPARISON: None. TECHNIQUE: CT of the brain without contrast FINDINGS: Age-related generalized brain atrophy is advanced. Intracranial atherosclerotic calcifications are n oted. No hemorrhage or extra-axial collection. Microvascular ischemic changes are present in the bi lateral periventricular white matter. No sinus air-fluid levels. The mastoid air cells are clear. No skull fracture or suspicious bony lesion. IMPRESSION: Chronic brain changes. Nothing acute. All CT scans at this facility use dose modulation, iterative reconstruction, and/or weight based dosi ng when appropriate to reduce radiation dose to as low as reasonably achievable. THIS IS AN ELECTRONICALLY VERIFIED FINAL REPORT 07/19/2024 5:35 PM - Electronically signed by Angel Harris MD
--- NOTE | 2024-07-19 18:19 | EKG ---
Test Reason : chest pain Blood Pressure : */* mmHG Vent. Rate : 66 BPM Atrial Rate : 66 BPM P-R Int : 192 ms QRS Dur : 100 ms QT Int : 418 ms P-R-T Axes : 37 -2 45 degrees QTc Int : 438 ms Normal sinus rhythm Cannot rule out Inferior infarct , age undetermined Cannot rule out Anterior infarct , age undetermined Abnormal ECG When compared with ECG of 19-JUL-2024 12:26, Minimal criteria for Inferior infarct are now present Confirmed by López Huerta MD ([id number]) on 07/19/2024 7:36:51 PM Referred By: Confirmed By: López Huerta MD
[2024-07-19 18:39] LABS: ABG BASE EXCESS -0.2 mmol/L (-2.0-2.0); ABG HCO3 24.8 mmol/L (22-26)
--- NOTE | 2024-07-19 18:47 | DR.H&P ---
H&P History & Physical for Day of: H&P Date: 07/19/24 Chief Complaint Chief Complaint: CHEST PRESSURE, SAENZ AND ELEVATED BLOOD PRESSURE History of Present Illness History of Present Illness: PT IS 88 WF, DIRECT ADMIT FROM DR VELEZ'S OFFICE WITH REPORTS OF FEELING "SHAKY IN CHEST" OR CHEST PRESSURE WITH ELEVATED BLOOD PRESSURE. PT CO SAENZ FOR TWO DAYS. PT REPORTS SHE RECENLTY HAD TO INCREASE HYDRALAZINE TO 100MG TID AND SHE'S ON METOPROLOL ALSO. PT HAS PMH OF DM, HYPERLIPIDEMIA, RENAL DISEASE, BREAST CANCER IN REMISSION, ANEMIA AND AORTIC VALVE DISORDER. PT DENIES ANY FEVER OR FLU LIKE SYMPTOMS. PT REPORT LAST ECHO ~6 MOS AGO. PT ADMITTED FOR SERIAL CE AND EKG, CT HEAD AND BP CONTROL Past Medical History Past Medical History: Diabetes, Dyslipidemia and Hypertension Past Surgical History Surgical History: Hysterectomy and Mastectomy Family History Family Medical History: [place] Social History Type of Tobacco Use: None Does any household member use tobacco: No Alcohol Use: None Drug Use: None Medications Home Medications: Home Medications Medication Instructions Recorded Confirmed Type cyanocobalamin (vitamin B-12) 1,000 mcg IM Q2W 05/14/23 03/05/24 History 1,000 mcg/mL injection solution ergocalciferol (vitamin D2) 1,250 1,250 mcg PO QWEEK 05/14/23 03/05/24 History mcg (50,000 unit) capsule (Vitamin D2) fenofibrate nanocrystallized 145 145 mg PO QDAY 05/14/23 03/05/24 History mg tablet glyburide 5 mg tablet 5 mg PO BID 05/14/23 03/05/24 History hydralazine 25 mg tablet 25 mg PO BID 05/14/23 03/05/24 History letrozole 2.5 mg tablet 2.5 mg PO QDAY 05/14/23 03/05/24 History metformin 500 mg tablet 500 mg PO BID 05/14/23 03/05/24 History metoprolol succinate 50 mg 50 mg PO QDAY 05/14/23 03/05/24 History tablet,extended release 24 hr montelukast 10 mg tablet 10 mg PO QDAY 05/14/23 03/05/24 History omega 6-thh-all-fish oil 1,200 mg 1 cap PO BID 05/14/23 03/05/24 History (144 mg-216 mg) capsule (Fish Oil) omeprazole 20 mg capsule,delayed 20 mg PO QDAY 05/14/23 03/05/24 History release prednisone 1 mg tablet 3 mg PO Q OTHER DAY 05/14/23 03/05/24 History pregabalin 75 mg capsule 75 mg PO BID 05/14/23 03/05/24 History rosuvastatin 20 mg tablet 20 mg PO QPM 05/14/23 03/05/24 History spironolactone 50 mg tablet 50 mg PO BID 05/14/23 03/05/24 History Allergies Allergies Allergy/AdvReac Type Severity Reaction Status Date / Time No Known Allergies Allergy Verified 03/05/24 10:59 Labs 07/19/24 13:06 07/19/24 13:06 Labs: Laboratory WBC 6.5 X10^3/uL (3.6-10.0) 07/19/24 13:06 RBC 3.57 X10^6/uL (3.5-5.4) 07/19/24 13:06 Hgb 10.9 g/dL (12.0-16.0) L 07/19/24 13:06 Hct 32.0 % (36.0-47.0) L 07/19/24 13:06 MCV 89.6 fL (80.0-100.0) 07/19/24 13:06 MCH 30.6 pg (27.0-34.0) 07/19/24 13:06 MCHC 34.1 g/dL (33.0-35.0) 07/19/24 13:06 RDW 13.2 % (11.6-16.5) 07/19/24 13:06 Plt Count 233 X10^3/uL (150.0-450.0) 07/19/24 13:06 MPV 8.4 fL (7.4-11.0) 07/19/24 13:06 Neut % (Auto) 60.4 % (42.0-75.0) 07/19/24 13:06 Lymph % (Auto) 24.8 % (21.0-51.0) 07/19/24 13:06 [place] % (Auto) 13.4 % (0.0-13.0) H 07/19/24 13:06 Eos % (Auto) 1.2 % (0.9-2.9) 07/19/24 13:06 Baso % (Auto) 0.2 % (0.2-1.0) 07/19/24 13:06 Neut # (Auto) 3.9 x10^3/uL (2.2-4.8) 07/19/24 13:06 Lymph # (Auto) 1.6 X10^3/uL (1.3-2.9) 07/19/24 13:06 [place] # (Auto) 0.9 x10^3/uL (0.3-0.8) H 07/19/24 13:06 Eos # (Auto) 0.1 x10^3/uL (0.0-0.2) 07/19/24 13:06 Baso # (Auto) 0.0 X10^3/uL (0.0-0.1) 07/19/24 13:06 Absolute Nucleated RBC 0.0 /100WBC 07/19/24 13:06 D-Dimer 0.61 ug/ml (0.0-0.57) H 07/19/24 13:06 Sodium 141 mmol/L (136-145) 07/19/24 13:06 Corrected Sodium TNP 07/19/24 13:06 Potassium 4.1 mmol/L (3.5-5.1) 07/19/24 13:06 Chloride 104 mmol/L (98-107) 07/19/24 13:06 Carbon Dioxide 21.5 mmol/L (21-32) 07/19/24 13:06 BUN 31 mg/dL (7-18) H 07/19/24 13:06 Creatinine 1.71 mg/dL (0.55-1.02) H 07/19/24 13:06 Est GFR (MDRD) Af Amer 36 (>60) L 07/19/24 13:06 Est GFR (MDRD) Non-Af 30 (>60) L 07/19/24 13:06 Glucose 100 mg/dL (65-99) H 07/19/24 13:06 POC Glucose (mg/dL) 95 mg/dL (65-99) 07/19/24 17:48 Calcium 9.0 mg/dL (8.5-10.1) 07/19/24 13:06 Corrected Calcium TNP 07/19/24 13:06 Magnesium 1.8 mg/dL (2.0-2.9) L 07/19/24 13:06 Total Bilirubin 0.30 mg/dL (0.2-1.0) 07/19/24 13:06 AST 28 Units/L (15-37) 07/19/24 13:06 ALT 25 Units/L (12-78) 07/19/24 13:06 Alkaline Phosphatase 47 Units/L (46-116) 07/19/24 13:06 Troponin I High Sens 11.9 ng/L (4.0-60.0) 07/19/24 13:06 Total Protein 6.7 g/dL (6.4-8.2) 07/19/24 13:06 Albumin 3.6 g/dL (3.4-5.0) 07/19/24 13:06 Globulin 3.1 g/dL (2.5-4.5) 07/19/24 13:06 Albumin/Globulin Ratio 1.2 Ratio (1.1-2.1) 07/19/24 13:06 Free T4 1.16 ng/dL (0.76-1.46) 07/19/24 13:06 TSH 3rd Generation 2.978 uIU/mL (0.358-3.74) 07/19/24 13:06 Specimen Type Clean catch urine 07/19/24 14:35 Urine Color Pale yellow (YELLOW) 07/19/24 14:35 Urine Appearance Clear (CLEAR) 07/19/24 14:35 Urine pH 6.5 (5.0 - 8.0) 07/19/24 14:35 Ur Specific [place] 1.015 (1.000-1.030) 07/19/24 14:35 Urine Protein 1+ (NEGATIVE) 07/19/24 14:35 Urine Glucose (UA) Negative (NEGATIVE) 07/19/24 14:35 Urine Ketones Negative (NEGATIVE) 07/19/24 14:35 Urine Blood 1+ (NEGATIVE) 07/19/24 14:35 Urine Nitrite Negative (NEGATIVE) 07/19/24 14:35 Urine Bilirubin Negative (NEGATIVE) 07/19/24 14:35 Urine Urobilinogen Normal (NORMAL) 07/19/24 14:35 Ur Leukocyte Esterase 2+ (NEGATIVE) 07/19/24 14:35 Urine RBC 0-2 /HPF (0-3) 07/19/24 14:35 Urine WBC 3-5 /HPF (0-5) 07/19/24 14:35 Ur Squamous Epith Cells Negative /HPF (NEGATIVE) 07/19/24 14:35 Urine Bacteria Trace /HPF (NEGATIVE) 07/19/24 14:35 Ur Culture Indicated? No/not indicated 07/19/24 14:35 Review of Systems Constitutional: Weakness Eyes: No Symptoms Reported ENT: No Symptoms Reported Respiratory: Shortness of Breath Cardiovascular: Chest Pain, Palpitations and Light Headedness Gastrointestinal: No Symptoms Reported Genitourinary: No Symptoms Reported Musculoskeletal: No Symptoms Reported Skin: No Symptoms Reported Neurological: Weakness (MILD GENERALIZED MUSCLE WEAKNESS) Physical Exam Vital Signs: Vital Signs Temperature 98.5 F Temperature 97.4 F Pulse Rate [Right Brachial] 65 Pulse Rate [Right Brachial] 72 Respiratory Rate 18 Respiratory Rate 20 Respiratory Rate 20 Respiratory Rate 20 Blood Pressure [Right Arm] 148/67 Blood Pressure [Right Arm] 181/73 Blood Pressure [Right Arm] 163/72 O2 Sat by Pulse Oximetry 98 O2 Sat by Pulse Oximetry 95 Oriented: Normal Eyes: Normal Ear: Normal Nose: Normal Throat: Normal Respiratory: RLL Diminished and LLL Diminished Cardiovascular: Normal and Murmur Auscultation: Bowel Sounds: Normal Palpation: Normal Tenderness: Normal Skin: Decreased Turgur Musculoskeletal: Normal Psychiatric: Anxiety Mood Description: Anxious Affect: Anxious Speech Pattern: Clear and Appropriate Assessment/Plan (1) Chest pain: Status: Acute Plan: ADMIT, SERIAL CE AND EKG CXR ON ADMISSION DDIMER BP CONTROL, VERIFY HOME MEDICATIONS BS CONTROL, PRN SUPPLEMENTAL O2 ECHO ROUTINE, I&OS, ROOM AIR ABG PT TO SEE DR ABURTO ON TUESDAY AT 11 AM (2) Hypertension: Qualifiers: Hypertension type: primary hypertension Qualified Code(s): I10 - Essential (primary) hypertension Status: Chronic (3) GERD (gastroesophageal reflux disease): Qualifiers: Esophagitis presence: esophagitis presence not specified Qualified Code(s): K21.9 - Gastro-esophageal reflux disease without esophagitis Status: Chronic (4) Diabetes mellitus: Qualifiers: Diabetes mellitus type: type 2 Diabetes mellitus terminal block assembler insulin use: with jail use Diabetes mellitus complication status: with hyperglycemia Qualified Code(s): E11.65 - Type 2 diabetes mellitus with hyperglycemia; Z79.4 - long term care administrator (current) use of insulin Status: Chronic (5) Hyperlipidemia: Qualifiers: Hyperlipidemia type: mixed hyperlipidemia Qualified Code(s): E78.2 - Mixed hyperlipidemia Status: Chronic (6) Aortic valve disease: Status: Acute (7) Intractable headache: Status: Acute
[2024-07-19] MEDS ORDERED: PATIENT'S HOME MEDICATION (Rosuvastatin 20 mg tablet) PO SCH (21:00)
[2024-07-19] MEDS: ECOTRIN TAB 325 MG PO SCH (21:32)
[2024-07-19] MEDS: NS 1,000 ML IV 1,000 ML IV SCH (21:32)
[2024-07-19] MEDS: LYRICA CAP 75 mg PO PRN (21:33)
[2024-07-19] MEDS: TOPROL XL PO SCH (21:33)
[2024-07-19] MEDS: SNACK - Diabetic Appropriate PO SCH (21:33)
[2024-07-19] MEDS: CRESTOR TAB 10 MG PO SCH (21:33)
--- NOTE | 2024-07-20 00:07 | EKG ---
Test Reason : chest pain Blood Pressure : */* mmHG Vent. Rate : 62 BPM Atrial Rate : 62 BPM P-R Int : 208 ms QRS Dur : 100 ms QT Int : 424 ms P-R-T Axes : 90 -18 54 degrees QTc Int : 430 ms Normal sinus rhythm Minimal voltage criteria for LVH, may be normal variant ( [place] product ) Borderline ECG When compared with ECG of 19-JUL-2024 17:55, Minimal criteria for Inferior infarct are no longer present Confirmed by López Huerta MD ([id number]) on 07/20/2024 6:31:23 AM Referred By: Confirmed By: López Huerta MD
--- NOTE | 2024-07-20 06:03 | RAD ---
EXAM: CHEST, 1 VIEW HISTORY: chest pain; COMPARISON: 02/04/2020 FINDINGS: The cardiomediastinal silhouette is stable. Chronic appearing interstitial changes in the lungs. No acute airspace disease. No pneumothorax or ef fusion. No acute osseous abnormality. ACDF hardware. Partially visualized ORIF hardware overlying the right humerus. IMPRESSION: No acute cardiopulmonary disease. THIS IS AN ELECTRONICALLY VERIFIED FINAL REPORT 07/20/2024 6:00 AM - Electronically signed by David De La Rosa MD
[2024-07-20 06:22] LABS: BASOPHILS % (AUTO) 0.2 % (0.2-1.0); EOSINOPHILS # (AUTO) 0.2 x10^3/uL (0.0-0.2); EOSINOPHILS % (AUTO) 3.1 % (0.9-2.9); HEMATOCRIT 30.8 % (36.0-47.0); HEMOGLOBIN 10.6 g/dL (12.0-16.0); LYMPHOCYTES # (AUTO) 1.6 X10^3/uL (1.3-2.9); LYMPHOCYTES % (AUTO) 26.8 % (21.0-51.0); MEAN CORPUSCULAR HGB CONC 34.6 g/dL (33.0-35.0); MEAN CORPUSCULAR VOLUME 89.7 fL (80.0-100.0); MEAN PLATELET VOLUME 8.1 fL (7.4-11.0); MONOCYTES # (AUTO) 0.9 x10^3/uL (0.3-0.8); MONOCYTES % (AUTO) 14.6 % (0.0-13.0); NEUTROPHILS # (AUTO) 3.4 x10^3/uL (2.2-4.8); NEUTROPHILS % (AUTO) 55.3 % (42.0-75.0); PLATELET COUNT 223 X10^3/uL (150.0-450.0); RED BLOOD COUNT 3.43 X10^6/uL (3.5-5.4); RED CELL DISTRIBUTION WIDTH 13.2 % (11.6-16.5); WHITE BLOOD COUNT 6.2 X10^3/uL (3.6-10.0)
[2024-07-20 06:36] LABS: ALANINE AMINOTRANSFERASE 24 Units/L (12-78); ALBUMIN 3.3 g/dL (3.4-5.0); ALKALINE PHOSPHATASE 49 Units/L (46-116); ASPARTATE AMINO TRANSFERASE 22 Units/L (15-37); BLOOD UREA NITROGEN 30 mg/dL (7-18); CALCIUM 9.3 mg/dL (8.5-10.1); CARBON DIOXIDE 27.4 mmol/L (21-32); CHLORIDE 106 mmol/L (98-107); CHOL/HDL RATIO 3.1 (0.0-5.0); CHOLESTEROL 141 mg/dL (0-200); COR CA(FOR HYPOALB) 9.9 mg/dL (8.5-10.1); CREATININE 1.54 mg/dL (0.55-1.02); GLUCOSE 93 mg/dL (65-99); HDL CHOLESTEROL 45 mg/dL (40-60); MAGNESIUM 1.8 mg/dL (2.0-2.9); POTASSIUM 4.4 mmol/L (3.5-5.1); SODIUM 142 mmol/L (136-145); TOTAL PROTEIN 6.4 g/dL (6.4-8.2); TRIGLYCERIDES 131 mg/dL (0-150); eGFR NON BLACK RACES 34 (>60)
[2024-07-20 09:16] LABS: CREATINE KINASE 80 Units/L (26-192)
[2024-07-20] MEDS: LOVENOX INJ 40 MG SYR SC SCH (09:39)
[2024-07-20] MEDS: TRICOR TAB 48 MG PO SCH (09:39)
[2024-07-20] MEDS: APRESOLINE TAB 25 MG PO SCH (09:39)
[2024-07-20 16:17] VITALS: BP 142/61; PULSE 60; RESP 20; TEMP 98.2; O2SAT 95
== END 2024-07-20 14:50 | disposition home or self-care (01) ==
LOC: MED/SURG
PROVIDERS: ADMIT Internal Medicine; ATTEND Internal Medicine

== ENCOUNTER 2024-07-24 09:22 | Observation (INO) ==
[2024-07-24 11:51] VITALS: BMI 43.2
[2024-07-24] MEDS: NS 1,000 ML IV 1,000 ML IV SCH ×2 (12:30→16:14)
[2024-07-24 12:39] LABS: BASOPHILS # (AUTO) 0.1 X10^3/uL (0.0-0.1); BASOPHILS % (AUTO) 1.2 % (0.2-1.0); EOSINOPHILS # (AUTO) 0.1 x10^3/uL (0.0-0.2); EOSINOPHILS % (AUTO) 1.7 % (0.9-2.9); HEMATOCRIT 31.9 % (36.0-47.0); LYMPHOCYTES # (AUTO) 1.7 X10^3/uL (1.3-2.9); LYMPHOCYTES % (AUTO) 24.3 % (21.0-51.0); MEAN CORPUSCULAR HEMOGLOBIN 30.8 pg (27.0-34.0); MEAN CORPUSCULAR HGB CONC 34.5 g/dL (33.0-35.0); MEAN CORPUSCULAR VOLUME 89.4 fL (80.0-100.0); MEAN PLATELET VOLUME 7.9 fL (7.4-11.0); MONOCYTES % (AUTO) 14.1 % (0.0-13.0); NEUTROPHILS # (AUTO) 4.2 x10^3/uL (2.2-4.8); NEUTROPHILS % (AUTO) 58.7 % (42.0-75.0); PLATELET COUNT 251 X10^3/uL (150.0-450.0); RED BLOOD COUNT 3.57 X10^6/uL (3.5-5.4); RED CELL DISTRIBUTION WIDTH 13.3 % (11.6-16.5); WHITE BLOOD COUNT 7.2 X10^3/uL (3.6-10.0)
[2024-07-24 12:44] LABS: INR 0.99 (0.8-1.3)
[2024-07-24 12:51] LABS: ALANINE AMINOTRANSFERASE 23 Units/L (12-78); ALBUMIN 3.6 g/dL (3.4-5.0); ALKALINE PHOSPHATASE 64 Units/L (46-116); ASPARTATE AMINO TRANSFERASE 25 Units/L (15-37); BLOOD UREA NITROGEN 27 mg/dL (7-18); CALCIUM 9.1 mg/dL (8.5-10.1); CARBON DIOXIDE 28.1 mmol/L (21-32); CHLORIDE 104 mmol/L (98-107); CREATINE KINASE 80 Units/L (26-192); CREATININE 1.45 mg/dL (0.55-1.02); GLUCOSE 59 mg/dL (65-99); POTASSIUM 4.3 mmol/L (3.5-5.1); SODIUM 139 mmol/L (136-145); TOTAL PROTEIN 6.8 g/dL (6.4-8.2); eGFR NON BLACK RACES 36 (>60)
[2024-07-24] MEDS: D50W ABBOJECT SYR ONE ×2 (14:28→14:37)
[2024-07-24] MEDS: GLUTOSE 15 GEL ORAL PO ONE (14:38)
[2024-07-24] MEDS ORDERED: NovoLIN R (or HumuLIN R) SUBCUT PRN (15:00)
[2024-07-24] MEDS ORDERED: APRESOLINE INJ 20 MG VIAL IVP PRN (15:16)
[2024-07-24] MEDS: CATAPRES TAB 0.1 MG PO PRN (16:23)
--- NOTE | 2024-07-24 16:39 | CT ---
EXAMINATION: CTA, CHEST HISTORY: R/O PE. RENAL STENOSIS; COMPARISON: None. TECHNIQUE: Contiguous axial CT images of the thorax following intravenous contrast. Images reviewed in the axia l imaging plane with post processing thick slab MIP/3D volume images at a workstation.The above CT sc an was done with automated exposure control and the mA and kV was adjusted to obtain quality images a ccording to patient size. FINDINGS: The lungs are expanded. Patchy interstitial alveolar opacities scattered in both lungs. No focal ar eas of pulmonary consolidation or pleural fluid collections. The central airways are patent. Mild to moderate multichamber cardiac enlargement. Coronary artery calcifications. There is enlarge ment of the main pulmonary outflow trunk measuring 3.2 cm diameter suspicious for pulmonary arterial hypertension. No evidence of thrombus within the main central pulmonary arteries, however, the more distal tertiary branch vessels of the pulmonary arteries in both lower lungs demonstrate heterogeneou s enhancement potentially containing acute pulmonary emboli. Details are limited by patient motion i maging artifacts. No evidence of thoracic aortic aneurysm or dissection. Scattered arterial vascula r calcifications aorta and branch vessels. No pericardial effusion. No mediastinal or hilar adenopathy. Numerous enhance collateral vessels within the right anterior chest. Diffuse osteopenia. Multilevel spondylosis with mild dorsal kyphosis. IMPRESSION: Patchy interstitial alveolar opacities scattered in both lungs. No pleural fluid collections. Cardiomegaly, coronary artery calcifications. Enlarged main pulmonary outflow trunk suspicious for pulmonary arterial hypertension. No evidence of thrombus within the main central pulmonary arteries, however, the more distal tertiary branch vessel s of the pulmonary arteries in both lower lungs demonstrate heterogeneous enhancement potentially con taining acute pulmonary emboli. Details are limited by patient motion imaging artifacts. THIS IS AN ELECTRONICALLY VERIFIED FINAL REPORT 07/24/2024 4:35 PM - Electronically signed by Angella Staton MD
--- NOTE | 2024-07-24 17:12 | RAD ---
EXAMINATION: CHEST, 1 VIEW HISTORY: SHORTNESS OF BREATH; . COMPARISON STUDY: Chest x-ray 07/19/2024 TECHNIQUE: Single portable AP view chest FINDINGS: Lungs are expanded. Patchy bibasilar infiltrates. Mild cardiac silhouette enlargement. Normal pulm onary vascular pattern. CP angles are sharp. Bones are intact. Partially imaged orthopedic hardwar e right proximal humerus. IMPRESSION: Subtle bibasilar opacities. Cardiac silhouette enlargement. THIS IS AN ELECTRONICALLY VERIFIED FINAL REPORT 07/24/2024 5:09 PM - Electronically signed by Angella Staton MD
--- NOTE | 2024-07-24 17:12 | CT ---
EXAM: CTA ABDOMEN AND PELVIS WITH INTRAVENOUS CONTRAST HISTORY: Renal stenosis. TECHNIQUE: Spiral axial CT images are obtained through the distal abdomen, and pelvis with the admini stration of intravenous contrast. Three-dimensional coronal, sagittal, and oblique images are reforma tted. COMPARISON: None available. FINDINGS: CTA ABDOMEN AND PELVIS: There is severe aortoiliac atherosclerosis marked by calcified mural plaques throughout. No evidence for aortic pseudoaneurysm, aneurysm, dissection, occlusion, or rupture is se en. There is severe atherosclerotic calcified mural plaque seen at the celiac axis origin with estimated critical (greater than 90%) luminal stenosis at its origin. Axial image 270-274, series 5; sagittal image 79-88, series 7. The celiac artery branch vessels are otherwise widely patent. There is severe atherosclerotic calcified mural plaque seen at the SMA origin, with estimated moderat e (approximately 50 to 69%), potentially hemodynamically significant, luminal stenosis. Axial image 259-284, series 5; sagittal image 81-89, series 7. The SMA branch vessels are otherwise widely paten t. The TODD is patent. There is severe atherosclerotic calcified mural plaque seen at the right renal artery origin, with es timated moderate (50 to 69%), potentially hemodynamically significant, luminal stenosis. Axial image 284-313; sagittal image 90-98, series 7; coronal image 7-75, series 6. There is severe atherosclero tic calcified mural plaque seen at the left renal artery origin, with estimated mild to moderate (tawnya roximately 50 to 60%) luminal stenosis, of uncertain hemodynamic significance. Axial image 3 of 2-3 26; coronal image 76-79, series 6; sagittal image 81-83, series 7. CT ABDOMEN AND PELVIS: There are approximately 1.5 cm and 1 cm exophytic left middle pole renal cysts ; otherwise unremarkable kidneys. The liver, spleen, pancreas, gallbladder, and adrenal glands are w ithin normal limits. There is no evidence for renal stone disease or obstructive uropathy. The urin lauren bladder is normal in size and contour. There is no free fluid, free air, herniation, mass lesion, or lymphadenopathy seen. The patient is status post hysterectomy. GASTROINTESTINAL TRACT: Colonic diverticulosis, especially in the right colon, without evidence for d iverticulitis. No evidence for pneumatosis intestinalis, bowel herniation, bowel obstruction, appendi citis or colitis. BONES JOINTS: Severe multilevel DDD is seen throughout the distal thoracic and lumbar spine. L1-L4: Severe DDD (with chronic posterior disc bulge/marginal osteophyte complexes) and bilateral hypertroph ic facet joint DJD contributing to severe spinal canal, lateral recesses, and neural foraminal stenos es at these levels with potential for nerve root impingements. L4/5: Severe DDD and severe bilateral hypertrophic facet joint DJD, contributing to 10.7 mm (grade 1) spondylolisthesis, and severe latera l recess/spinal canal stenosis and severe bony neuroforaminal stenoses with probable L5 and L4 nerve root impingements, respectively. Sagittal image 81-109, series 7; axial image 480-530, series 5. IMPRESSION: 1. Severe aortoiliac atherosclerosis marked by calcified mural plaques throughout. No evidence for aortic pseudoaneurysm, aneurysm, dissection, occlusion, or rupture is seen. 2. Severe atherosclerotic calcified mural plaque seen at the celiac axis origin with estimated criti clifton (greater than 90%) luminal stenosis at its origin. Axial image 270-274, series 5; sagittal image 79-88, series 7. 3. Severe atherosclerotic calcified mural plaque seen at the SMA origin, with estimated moderate (ap proximately 50 to 69%), potentially hemodynamically significant, luminal stenosis. Axial image 259-2 84, series 5; sagittal image 81-89, series 7. 4. Severe atherosclerotic calcified mural plaque seen at the right renal artery origin, with estimat ed moderate (50 to 69%), potentially hemodynamically significant, luminal stenosis. Axial image 284- 313; sagittal image 90-98, series 7; coronal image 7-75, series 6. 5. Severe atherosclerotic calcified mural plaque seen at the left renal artery origin, with estimate d mild to moderate (approximately 50 to 60%) luminal stenosis, of uncertain hemodynamic significance. Axial image 3 of 2-3 26; coronal image 76-79, series 6; sagittal image 81-83, series 7. 6. Colonic diverticulosis, especially in the right colon, without evidence for diverticulitis. 7. No evidence for pneumatosis intestinalis, bowel herniation, bowel obstruction, appendicitis or co litis. 8. Severe multilevel DDD is seen throughout the distal thoracic and lumbar spine. 9. L1-L4: Severe DDD (with chronic posterior disc bulge/marginal osteophyte complexes) and bilateral hypertrophic facet joint DJD contributing to severe spinal canal, lateral recesses, and neural wendy inal stenoses at these levels with potential for nerve root impingements. 10. L4/5: Severe DDD and severe bilateral hypertrophic facet joint DJD, contributing to 10.7 mm (gra de 1) spondylolisthesis, and severe lateral recess/spinal canal stenosis and severe bony neuroforamin al stenoses with probable L5 and L4 nerve root impingements, respectively. Sagittal image 81-109, se tiffany 7; axial image 480-530, series 5. THIS IS AN ELECTRONICALLY VERIFIED FINAL REPORT 07/24/2024 5:09 PM - Electronically signed by Larisa De La Fuente MD
[2024-07-24] MEDS: NORVASC TAB 2.5 MG PO SCH (18:21)
--- NOTE | 2024-07-24 18:27 | DR.H&P ---
H&P History & Physical for Day of: H&P Date: 07/24/24 Chief Complaint Chief Complaint: HIGH BLOOD PRESSURE, SOB ON EXERTION History of Present Illness History of Present Illness: PT IS 88 WF, DIRECT ADMIT FOR EVALUATION AND OZIEL TMENT OF UNCONTROLLED HYPERTENSION WITH SYMPTOMS OF FATIGUE, DIZZINESS, AND SOB ON EXERTION. PT HAD A VQ SCAN ON 07/23 WITH SUGGESTION FOR POSSIBLE PE. PT HAS HX OF CRF AND ANEMIA. PT WAS ADMITTED FOR IV HYDRATION TO OBTAIN A CTA OF CHEST TO RO PE AND IF REQUIRED WILL INITIATE ANTICOAGULATION THERAPY. PT HAS HTN AND OA, DM, HX BREAST CANCER AND NEUROPATHY. Past Medical History Past Medical History: Anemia, Arthritis, Diabetes, Dyslipidemia and Hypertension Past Surgical History Surgical History: Hysterectomy Family History Family Medical History: MA Social History Does patient currently use any type of tobacco product: No Type of Tobacco Use: None Alcohol Use: None Medications Home Medications: Home Medications Medication Instructions Recorded Confirmed Type cyanocobalamin (vitamin B-12) 1,000 mcg IM Q2W 05/14/23 07/24/24 History 1,000 mcg/mL injection solution (Dodex) ergocalciferol (vitamin D2) 1,250 1,250 mcg PO QWEEK 05/14/23 07/24/24 History mcg (50,000 unit) capsule (Vitamin D2) fenofibrate nanocrystallized 145 145 mg PO QDAY 05/14/23 07/24/24 History mg tablet (Tricor) glyburide 5 mg tablet 5 mg PO QAM 05/14/23 07/24/24 History letrozole 2.5 mg tablet (Femara) 2.5 mg PO QDAY 05/14/23 07/24/24 History metformin 500 mg tablet 500 mg PO BID 05/14/23 07/24/24 History metoprolol succinate 50 mg 50 mg PO QDAY 05/14/23 07/24/24 History tablet,extended release 24 hr (Toprol XL) montelukast 10 mg tablet 10 mg PO QDAY 05/14/23 07/24/24 History omega 3-zpt-iyc-fish oil 1,200 mg 1 cap PO BID 05/14/23 07/24/24 History (144 mg-216 mg) capsule (Fish Oil) omeprazole 20 mg capsule,delayed 20 mg PO QDAY 05/14/23 07/24/24 History release prednisone 1 mg tablet 1 mg PO QDAY 05/14/23 07/24/24 History pregabalin 75 mg capsule (Lyrica) 75 mg PO TID 05/14/23 07/24/24 History rosuvastatin 20 mg tablet 20 mg PO QPM 05/14/23 07/24/24 History spironolactone 50 mg tablet 50 mg PO DAILY 05/14/23 07/24/24 History (Aldactone) hydralazine 50 mg tablet 50 mg PO TID 07/24/24 07/24/24 History Allergies Allergies Allergy/AdvReac Type Severity Reaction Status Date / Time No Known Allergies Allergy Verified 07/24/24 09:45 Labs 07/24/24 12:20 07/24/24 15:00 Labs: Laboratory WBC 7.2 X10^3/uL (3.6-10.0) 07/24/24 12:20 RBC 3.57 X10^6/uL (3.5-5.4) 07/24/24 12:20 Hgb 11.0 g/dL (12.0-16.0) L 07/24/24 12:20 Hct 31.9 % (36.0-47.0) L 07/24/24 12:20 MCV 89.4 fL (80.0-100.0) 07/24/24 12:20 MCH 30.8 pg (27.0-34.0) 07/24/24 12:20 MCHC 34.5 g/dL (33.0-35.0) 07/24/24 12:20 RDW 13.3 % (11.6-16.5) 07/24/24 12:20 Plt Count 251 X10^3/uL (150.0-450.0) 07/24/24 12:20 MPV 7.9 fL (7.4-11.0) 07/24/24 12:20 Neut % (Auto) 58.7 % (42.0-75.0) 07/24/24 12:20 Lymph % (Auto) 24.3 % (21.0-51.0) 07/24/24 12:20 [place] % (Auto) 14.1 % (0.0-13.0) H 07/24/24 12:20 Eos % (Auto) 1.7 % (0.9-2.9) 07/24/24 12:20 Baso % (Auto) 1.2 % (0.2-1.0) H 07/24/24 12:20 Neut # (Auto) 4.2 x10^3/uL (2.2-4.8) 07/24/24 12:20 Lymph # (Auto) 1.7 X10^3/uL (1.3-2.9) 07/24/24 12:20 [place] # (Auto) 1.0 x10^3/uL (0.3-0.8) H 07/24/24 12:20 Eos # (Auto) 0.1 x10^3/uL (0.0-0.2) 07/24/24 12:20 Baso # (Auto) 0.1 X10^3/uL (0.0-0.1) 07/24/24 12:20 Absolute Nucleated RBC 0.0 /100WBC 07/24/24 12:20 PT 13.2 SECONDS (11.8-14.3) 07/24/24 12:20 INR Target Range - 07/24/24 12:20 INR 0.99 (0.8-1.3) 07/24/24 12:20 D-Dimer 0.83 ug/ml (0.0-0.57) H 07/24/24 12:20 Sodium 139 mmol/L (136-145) 07/24/24 12:20 Corrected Sodium TNP 07/24/24 12:20 Potassium 4.3 mmol/L (3.5-5.1) 07/24/24 12:20 Chloride 104 mmol/L (98-107) 07/24/24 12:20 Carbon Dioxide 28.1 mmol/L (21-32) 07/24/24 12:20 BUN 27 mg/dL (7-18) H 07/24/24 12:20 Creatinine 1.45 mg/dL (0.55-1.02) H 07/24/24 12:20 Est GFR (MDRD) Af Amer 44 (>60) L 07/24/24 12:20 Est GFR (MDRD) Non-Af 36 (>60) L 07/24/24 12:20 Glucose 133 mg/dL (65-99) H 07/24/24 15:00 POC Glucose (mg/dL) 94 mg/dL (65-99) 07/24/24 16:06 Calcium 9.1 mg/dL (8.5-10.1) 07/24/24 12:20 Corrected Calcium TNP 07/24/24 12:20 Total Bilirubin 0.30 mg/dL (0.2-1.0) 07/24/24 12:20 AST 25 Units/L (15-37) 07/24/24 12:20 ALT 23 Units/L (12-78) 07/24/24 12:20 Alkaline Phosphatase 64 Units/L (46-116) 07/24/24 12:20 Creatine Kinase 80 Units/L (26-192) 07/24/24 12:20 Troponin I High Sens 11.5 ng/L (4.0-60.0) 07/24/24 12:20 B-Natriuretic Peptide 112 pg/mL (0-79) H 07/24/24 12:20 Total Protein 6.8 g/dL (6.4-8.2) 07/24/24 12:20 Albumin 3.6 g/dL (3.4-5.0) 07/24/24 12:20 Globulin 3.2 g/dL (2.5-4.5) 07/24/24 12:20 Albumin/Globulin Ratio 1.1 Ratio (1.1-2.1) 07/24/24 12:20 Review of Systems Constitutional: Malaise Eyes: No Symptoms Reported ENT: No Symptoms Reported Respiratory: SOB with Excertion Cardiovascular: denies Edema Gastrointestinal: No Symptoms Reported Genitourinary: No Symptoms Reported Musculoskeletal: Back Pain Skin: No Symptoms Reported Neurological: Other (DIZZY SPELLS) Physical Exam Vital Signs: Vital Signs Temperature 98.1 F Temperature 98.2 F Temperature 97.5 F Temperature 97.5 F Temperature 97.7 F Temperature 97.8 F Temperature 97.8 F Temperature 97.8 F Temperature 97.8 F Pulse Rate [Right Brachial] 60 Pulse Rate [Right Brachial] 61 Pulse Rate [Right Brachial] 62 Pulse Rate [Right Brachial] 62 Pulse Rate 60 Pulse Rate 59 Pulse Rate 62 Pulse Rate 62 Pulse Rate 62 Respiratory Rate 26 Respiratory Rate 13 Respiratory Rate 23 Respiratory Rate 30 Respiratory Rate 25 Respiratory Rate 31 Respiratory Rate 31 Respiratory Rate 31 Respiratory Rate 31 Blood Pressure [Right Arm] 140/87 Blood Pressure [Right Arm] 146/64 Blood Pressure [Right Arm] 169/74 Blood Pressure [Right Arm] 187/74 Blood Pressure 168/74 Blood Pressure 196/79 Blood Pressure 169/72 Blood Pressure 169/74 Blood Pressure 187/74 Blood Pressure 164/70 O2 Sat by Pulse Oximetry 99 O2 Sat by Pulse Oximetry 97 O2 Sat by Pulse Oximetry 98 O2 Sat by Pulse Oximetry 96 O2 Sat by Pulse Oximetry 97 O2 Sat by Pulse Oximetry 99 O2 Sat by Pulse Oximetry 99 O2 Sat by Pulse Oximetry 97 O2 Sat by Pulse Oximetry 97 Oriented: Normal Eyes: Normal Ear: Normal Nose: Normal Throat: Normal Respiratory: RLL Diminished and LLL Diminished Cardiovascular: Murmur Auscultation: Bowel Sounds: Normal Palpation: Normal Tenderness: Normal Skin: Decreased Turgur Musculoskeletal: Back:Lumbar Psychiatric: Anxiety Affect: Anxious Speech Pattern: Clear and Appropriate Assessment/Plan (1) D-dimer, elevated: Status: Acute (2) GERD (gastroesophageal reflux disease): Qualifiers: Esophagitis presence: esophagitis presence not specified Qualified Code(s): K21.9 - Gastro-esophageal reflux disease without esophagitis Status: Chronic Plan: ADMIT, BP CONTROL, PRN SUPPLEMENTAL O2 CTA CHEST CTA ABD RO PE AND RENAL ARTERY STENOSIS I&OS, CE ON ADMISSION OCCULT STOOL, ADMISSION LABS [facility] (3) Diabetes mellitus: Qualifiers: Diabetes mellitus type: type 2 Diabetes mellitus jail insulin use: with jail use Diabetes mellitus complication status: with hyperglycemia Qualified Code(s): E11.65 - Type 2 diabetes mellitus with hyperglycemia; Z79.4 - senior living (current) use of insulin Status: Chronic (4) Hypertension: Qualifiers: Hypertension type: primary hypertension Qualified Code(s): I10 - Essential (primary) hypertension Status: Chronic (5) Aortic valve disease: Status: Acute (6) CRF (chronic renal failure): Status: Acute
[2024-07-24] MEDS ORDERED: ELIQUIS PO SCH (21:00)
[2024-07-24] MEDS ORDERED: PATIENT'S HOME MEDICATION (Rosuvastatin 20 mg tablet) PO SCH (21:00)
[2024-07-24] MEDS: APRESOLINE TAB 25 MG PO SCH (21:05)
[2024-07-24] MEDS: CRESTOR TAB 10 MG PO SCH (21:05)
[2024-07-24] MEDS: ALPRAZOLAM ODT PO PRN (21:06)
[2024-07-24] MEDS: LYRICA CAP 75 mg PO SCH (21:06)
[2024-07-24] MEDS: PriLOSEC PO SCH (21:06)
[2024-07-24] MEDS: ELIQUIS PO SCH (21:06)
[2024-07-24] MEDS: NS 100 ML IV 100 ML ONE (21:46)
[2024-07-24] MEDS: OMNIPAQUE 350 mg/mL 100 mL BTL 100 ML ONE ×2 (21:46→21:47)
[2024-07-24] MEDS: NS 1,000 ML IV 1,000 ML IV ONE (21:47)
[2024-07-24] MEDS: NORVASC TAB 2.5 MG ONE (21:47)
[2024-07-24] MEDS: SNACK - Diabetic Appropriate PO SCH (21:48)
[2024-07-24] MEDS ORDERED: LYRICA CAP 75 mg PO SCH (22:00)
[2024-07-25 05:28] LABS: BASOPHILS # (AUTO) 0.1 X10^3/uL (0.0-0.1); BASOPHILS % (AUTO) 1.3 % (0.2-1.0); EOSINOPHILS # (AUTO) 0.1 x10^3/uL (0.0-0.2); EOSINOPHILS % (AUTO) 1.4 % (0.9-2.9); HEMATOCRIT 28.5 % (36.0-47.0); LYMPHOCYTES # (AUTO) 1.4 X10^3/uL (1.3-2.9); LYMPHOCYTES % (AUTO) 16.6 % (21.0-51.0); MEAN CORPUSCULAR HEMOGLOBIN 31.1 pg (27.0-34.0); MEAN CORPUSCULAR VOLUME 88.9 fL (80.0-100.0); MEAN PLATELET VOLUME 8.4 fL (7.4-11.0); MONOCYTES # (AUTO) 1.2 x10^3/uL (0.3-0.8); MONOCYTES % (AUTO) 13.9 % (0.0-13.0); NEUTROPHILS # (AUTO) 5.7 x10^3/uL (2.2-4.8); NEUTROPHILS % (AUTO) 66.8 % (42.0-75.0); PLATELET COUNT 237 X10^3/uL (150.0-450.0); RED CELL DISTRIBUTION WIDTH 13.4 % (11.6-16.5); WHITE BLOOD COUNT 8.5 X10^3/uL (3.6-10.0)
[2024-07-25 05:43] LABS: ALANINE AMINOTRANSFERASE 20 Units/L (12-78); ALBUMIN 2.9 g/dL (3.4-5.0); ALKALINE PHOSPHATASE 56 Units/L (46-116); ASPARTATE AMINO TRANSFERASE 22 Units/L (15-37); BLOOD UREA NITROGEN 23 mg/dL (7-18); CALCIUM 8.7 mg/dL (8.5-10.1); CARBON DIOXIDE 25.8 mmol/L (21-32); CHLORIDE 106 mmol/L (98-107); COR CA(FOR HYPOALB) 9.6 mg/dL (8.5-10.1); GLUCOSE 87 mg/dL (65-99); POTASSIUM 4.3 mmol/L (3.5-5.1); SODIUM 140 mmol/L (136-145); TOTAL PROTEIN 5.9 g/dL (6.4-8.2); eGFR NON BLACK RACES 38 (>60)
[2024-07-25] MEDS ORDERED: NORVASC TAB 2.5 MG ONE (08:43)
[2024-07-25] MEDS ORDERED: LOVENOX INJ 40 MG SYR SC SCH (09:00)
[2024-07-25] MEDS: TOPROL XL PO SCH (09:35)
--- NOTE | 2024-07-25 11:19 | RAD ---
EXAM: CHEST, 1 VIEW HISTORY: sob ; COMPARISON: 07/24/2024 TECHNIQUE: AP portable FINDINGS: Stable prominent cardiac silhouette, accentuated by AP technique. No focal consolidation, pleural ef fusion, or visible pneumothorax. IMPRESSION: No acute cardiopulmonary findings. THIS IS AN ELECTRONICALLY VERIFIED FINAL REPORT 07/25/2024 11:17 AM - Electronically signed by John Quintero MD
--- NOTE | 2024-07-25 17:16 | PCM.PROG ---
Progress Note Progress Note for Day of Date of Exam: 07/25/24 Subjective Subjective: PT IS 88 WF, DIRECT ADMIT FOR EVALUATION AND TREATMENT OF ABNORMAL DIAGNOSTIC TESTING. PT HAD A CTA OF CHEST SUGGESTING PE, REQUIRING INITIATION OF ANTICOGULANT THERAPY. PT WAS STARTED ON ELIQUIS 10MG PO BID FOR ONE WEEK, THEN DECREASE TO 5MG PO BID. PT HAS BEEN ON TELEMETRY AND BP CONTROL. PLAN TO OBTAIN LE US RO DVT. PT HAS CRF WITH HX OF RENAL ARTERY STENOSIS ASSESSED ON CTA OF ABDOMEN. PT'S METFORMIN ON HOLD SINCE SHE RECEIVED IV DYE ON ADMISSION SCANS. PT'S DIAGNOSTICS TESTS AND LAB REVIEWED WITH PT AND FAMILY. PLAN TO REFER TO PULMONOLGY FOR MANAGEMENT OF PULMONARY HYPERTENSION AND WILL SET UP IN LAB SLEEP STUDY. Past Medical Family Social History Allergies: Allergies No Known Allergies Allergy (Verified 07/24/24 09:45) Vital Signs and I&O's Vital Signs: Vital Signs Temperature 98.8 F Temperature 97.7 F Pulse Rate 62 Pulse Rate 60 Pulse Rate 60 Pulse Rate 65 Respiratory Rate 23 Respiratory Rate 20 Respiratory Rate 20 Respiratory Rate 20 Blood Pressure 141/63 Blood Pressure 140/59 Blood Pressure 146/66 Blood Pressure 169/66 O2 Sat by Pulse Oximetry 97 O2 Sat by Pulse Oximetry 97 O2 Sat by Pulse Oximetry 97 O2 Sat by Pulse Oximetry 96 Intake and Output: Intake & Output 07/23/24 07/24/24 07/25/24 07/26/24 11:59 11:59 11:59 11:59 Intake Total 1149 / 1149 1367 / 1367 Output Total 1000 / 1000 1600 / 1600 Balance 149 / 149 -233 / -233 Physical Exam Oriented: Normal Eyes: Normal Ear: Normal Nose: Normal Throat: Normal Respiratory: Diminished Cardiovascular: Murmur Auscultation: Bowel Sounds: Normal Tenderness: Normal Skin: Decreased Turgur Musculoskeletal: Back:Lumbar Psychiatric: Anxiety Affect: Anxious Speech Pattern: Clear and Appropriate Laboratory and Diagnostics 07/25/24 04:13 07/25/24 04:13 Labs: Laboratory WBC 8.5 X10^3/uL (3.6-10.0) 07/25/24 04:13 RBC 3.20 X10^6/uL (3.5-5.4) L 07/25/24 04:13 Hgb 10.0 g/dL (12.0-16.0) L 07/25/24 04:13 Hct 28.5 % (36.0-47.0) L 07/25/24 04:13 MCV 88.9 fL (80.0-100.0) 07/25/24 04:13 MCH 31.1 pg (27.0-34.0) 07/25/24 04:13 MCHC 35.0 g/dL (33.0-35.0) 07/25/24 04:13 RDW 13.4 % (11.6-16.5) 07/25/24 04:13 Plt Count 237 X10^3/uL (150.0-450.0) 07/25/24 04:13 MPV 8.4 fL (7.4-11.0) 07/25/24 04:13 Neut % (Auto) 66.8 % (42.0-75.0) 07/25/24 04:13 Lymph % (Auto) 16.6 % (21.0-51.0) L 07/25/24 04:13 [place] % (Auto) 13.9 % (0.0-13.0) H 07/25/24 04:13 Eos % (Auto) 1.4 % (0.9-2.9) 07/25/24 04:13 Baso % (Auto) 1.3 % (0.2-1.0) H 07/25/24 04:13 Neut # (Auto) 5.7 x10^3/uL (2.2-4.8) H 07/25/24 04:13 Lymph # (Auto) 1.4 X10^3/uL (1.3-2.9) 07/25/24 04:13 [place] # (Auto) 1.2 x10^3/uL (0.3-0.8) H 07/25/24 04:13 Eos # (Auto) 0.1 x10^3/uL (0.0-0.2) 07/25/24 04:13 Baso # (Auto) 0.1 X10^3/uL (0.0-0.1) 07/25/24 04:13 Absolute Nucleated RBC 0.2 /100WBC 07/25/24 04:13 PT 13.2 SECONDS (11.8-14.3) 07/24/24 12:20 INR Target Range - 04/29/25 12:20 INR 0.99 (0.8-1.3) 07/24/24 12:20 D-Dimer 0.83 ug/ml (0.0-0.57) H 07/24/24 12:20 Sodium 140 mmol/L (136-145) 07/25/24 04:13 Corrected Sodium TNP 07/25/24 04:13 Potassium 4.3 mmol/L (3.5-5.1) 07/25/24 04:13 Chloride 106 mmol/L (98-107) 07/25/24 04:13 Carbon Dioxide 25.8 mmol/L (21-32) 07/25/24 04:13 BUN 23 mg/dL (7-18) H 07/25/24 04:13 Creatinine 1.40 mg/dL (0.55-1.02) H 07/25/24 04:13 Est GFR (MDRD) Af Amer 46 (>60) L 07/25/24 04:13 Est GFR (MDRD) Non-Af 38 (>60) L 07/25/24 04:13 Glucose 87 mg/dL (65-99) 07/25/24 04:13 POC Glucose (mg/dL) 161 mg/dL (65-99) H 07/25/24 16:29 Calcium 8.7 mg/dL (8.5-10.1) 07/25/24 04:13 Corrected Calcium 9.6 mg/dL (8.5-10.1) 07/25/24 04:13 Total Bilirubin 0.20 mg/dL (0.2-1.0) 07/25/24 04:13 AST 22 Units/L (15-37) 07/25/24 04:13 ALT 20 Units/L (12-78) 07/25/24 04:13 Alkaline Phosphatase 56 Units/L (46-116) 07/25/24 04:13 Creatine Kinase 80 Units/L (26-192) 07/24/24 12:20 Troponin I High Sens 11.5 ng/L (4.0-60.0) 07/24/24 12:20 B-Natriuretic Peptide 112 pg/mL (0-79) H 07/24/24 12:20 Total Protein 5.9 g/dL (6.4-8.2) L 07/25/24 04:13 Albumin 2.9 g/dL (3.4-5.0) L 07/25/24 04:13 Globulin 3.0 g/dL (2.5-4.5) 07/25/24 04:13 Albumin/Globulin Ratio 1.0 Ratio (1.1-2.1) L 07/25/24 04:13 Plan (1) Pulmonary emboli: Status: Acute Plan: ELIQUIS THERAPY HX OF ANEMIA MONITOR H&H, ROUTINE OCCULT STOOL BP CONTROL, TELMETRY BS CONTROL, PRN SUPPLEMENTAL O2 (2) D-dimer, elevated: Status: Acute (3) GERD (gastroesophageal reflux disease): Status: Chronic Qualifiers: Esophagitis presence: esophagitis presence not specified Qualified Code(s): K21.9 - Gastro-esophageal reflux disease without esophagitis (4) Diabetes mellitus: Status: Chronic Qualifiers: Diabetes mellitus type: type 2 Diabetes mellitus fci insulin use: with termite renewal inspector use Diabetes mellitus complication status: with hyperglycemia Qualified Code(s): E11.65 - Type 2 diabetes mellitus with hyperglycemia; Z79.4 - termite renewal inspector (current) use of insulin (5) Hypertension: Status: Chronic Qualifiers: Hypertension type: primary hypertension Qualified Code(s): I10 - Essential (primary) hypertension (6) Aortic valve disease: Status: Acute (7) CRF (chronic renal failure): Status: Acute (8) Pulmonary hypertension: Status: Acute
[2024-07-26 05:11] LABS: BASOPHILS % (AUTO) 0.2 % (0.2-1.0); EOSINOPHILS # (AUTO) 0.2 x10^3/uL (0.0-0.2); HEMATOCRIT 27.7 % (36.0-47.0); HEMOGLOBIN 9.6 g/dL (12.0-16.0); LYMPHOCYTES # (AUTO) 1.5 X10^3/uL (1.3-2.9); LYMPHOCYTES % (AUTO) 32.5 % (21.0-51.0); MEAN CORPUSCULAR HEMOGLOBIN 30.9 pg (27.0-34.0); MEAN CORPUSCULAR HGB CONC 34.5 g/dL (33.0-35.0); MEAN CORPUSCULAR VOLUME 89.7 fL (80.0-100.0); MEAN PLATELET VOLUME 8.7 fL (7.4-11.0); MONOCYTES # (AUTO) 0.9 x10^3/uL (0.3-0.8); MONOCYTES % (AUTO) 18.6 % (0.0-13.0); NEUTROPHILS # (AUTO) 2.1 x10^3/uL (2.2-4.8); NEUTROPHILS % (AUTO) 44.7 % (42.0-75.0); PLATELET COUNT 226 X10^3/uL (150.0-450.0); RED BLOOD COUNT 3.09 X10^6/uL (3.5-5.4); RED CELL DISTRIBUTION WIDTH 13.4 % (11.6-16.5); WHITE BLOOD COUNT 4.8 X10^3/uL (3.6-10.0)
[2024-07-26 05:26] LABS: ALBUMIN 2.9 g/dL (3.4-5.0); CALCIUM 9.1 mg/dL (8.5-10.1); CARBON DIOXIDE 25.8 mmol/L (21-32); CREATININE 1.53 mg/dL (0.55-1.02); POTASSIUM 4.1 mmol/L (3.5-5.1); TOTAL PROTEIN 5.9 g/dL (6.4-8.2)
[2024-07-26] MEDS ORDERED: NORVASC TAB 2.5 MG ONE (08:02)
[2024-07-26 13:09] VITALS: BP 166/72; PULSE 68; RESP 16; TEMP 97.9; O2SAT 97
--- NOTE | 2024-07-26 13:58 | VAS ---
EXAM:LEVBILBCHBilateral lower extremity DVT ultrasound examination with Doppler imaging.HISTORY:R/O CLOTS; PE, LISSET LEG SWELLING . Evaluate for evidence for DVT.Bilateral lower extremity pain and swelling.COMPARISON:NoneTECHNIQUE:Ultras ound of the deep venous vasculature of the bilateral lower extremities was performed.Color and spectral doppler imaging was utilized for the purposes of this examination as well.FINDINGS:The deep veins of both lower extremities are normal in size and configuration. No intraluminal filling defects are seen on grayscale or color flow imaging.The veins compress normally. Doppler waveforms are normal at rest and with augmentation.IMPRESSION:Negative bilateral lower extremity DVT ultrasound exam(s).THIS IS AN ELECTRONICALLY VERIFIED FINAL REPORT07/26/2024 1:45 PM - Electronically signed by Bernard Whitten MD
== END 2024-07-26 14:10 | disposition home or self-care (01) ==
LOC: ICU
PROVIDERS: ADMIT Internal Medicine; ATTEND Internal Medicine
DX: I12.9 Hypertensive chronic kidney disease with stage 1 through stage 4 chronic kidney disease, or unspecified chronic kidney disease; E11.649 Type 2 diabetes mellitus with hypoglycemia without coma; N18.9 Chronic kidney disease, unspecified; I35.8 Other nonrheumatic aortic valve disorders; E78.5 Hyperlipidemia, unspecified; Z87.440 Personal history of urinary (tract) infections; R79.1 Abnormal coagulation profile; E11.65 Type 2 diabetes mellitus with hyperglycemia; R06.02 Shortness of breath; M51.369 Other intervertebral disc degeneration, lumbar region without mention of lumbar back pain or lower extremity pain; I27.20 Pulmonary hypertension, unspecified; E86.0 Dehydration; I26.99 Other pulmonary embolism without acute cor pulmonale; Z79.4 Long term (current) use of insulin; D64.89 Other specified anemias; K21.9 Gastro-esophageal reflux disease without esophagitis; R60.0 Localized edema; Z59.89 Other problems related to housing and economic circumstances